=== PATIENT | male | born 1950 | race Caucasian/White ===

== ENCOUNTER → 2018-05-03 08:32 | Outpatient (CLI) | payer SELFPAY | PROVIDERS: Visit Provider Nurse Practitioner Family | DX: E11.9 Type 2 diabetes mellitus without complications (principal) ==

== ENCOUNTER 2023-07-12 11:27 | Inpatient (IN) | payer MEDICARE, SELFPAY ==
[2023-07-12] VITALS (21 sets, daily range): BP systolic 96–141; BP diastolic 53–96; PULSE 88–111; RESP 9–20; TEMP 36.5–36.8; O2SAT 95–100; BMI 22.4; BMI 22.8
--- NOTE | 2023-07-12 11:34 | ECG_ITS ---
APPROVED REPORT Exam: Resting ECG HR:109 bpm ECG Measurements Heart Rate 109 AXES MN 149 P 72 QRSd 98 QRS 80 QT 330 T 60 QTc 394 Conclusion SINUS TACHYCARDIA WITH OCCASIONAL ECTOPIC PREMATURE COMPLEXES POSSIBLE LEFT ATRIAL ENLARGEMENT [-0.1mV P-WAVE IN V1/V2] ANTEROLATERAL MYOCARDIAL INFARCTION , PROBABLY RECENT [40+ ms Q WAVE IN I/aVL/V3-V6] ACUTE UT INTERPRETATION BASED ON A DEFAULT AGE OF 40 YEARS UNCONFIRMED REPORT Electronically signed by : Loki Murray MD 07/12/2023 17:09:15
--- NOTE | 2023-07-12 11:40 | CA_ITS ---
APPROVED REPORT EXAM: Comprehensive 2D, Doppler, and color-flow Echocardiogram Farm Adviser: DOROTEO Gregory, RVS Ht: 5 ft 10 in Wt: 170lbs BSA: 1.95 BP: 135/86 mmHg Indications: weakness, STEMI Echo Enhancing Agent Comments: Patient scanned bedside, supine with limited window due to defibrillator pad placement 2D Dimensions IVSd 0.98 cm LVEF (Visual) 32.00 % PWd 1.07 cm LA Volume 70.00 mL LVDd 5.92 cm LA Volume Index 35.00 mL/m2 (M/F) 16-34 LVDs 4.70 cm Aortic Root 3.50 cm Left Atrium 3.88 cm LVOT 2.15 cm (M/F) 1.5-2.5 M-Mode Dimensions LA Diam 5.04 cm (1.9-4.0) Ao Diam 3.41 cm (2.0-3.7) EPSs 1.65 cm TAPSE 1.79 (<1.7) LV Diastology E Decel Time 152.00 (160-240 msec) E/A Ratio 0.91 MED E' 6.00 (< 7 cm/sec) MED A' 15.80 cm/s E'/MED E' Ratio 15.40 (>14) LAT E' 4.50 (<10 cm/sec) LAT A' 8.60 cm/s E/LAT E' Ratio 20.53 (>14) Aortic Valve LVOT Max 85.00 (70-110 cm/s) LVOT VTI 14.56 cm AoV Peak Rasta. 94.00 (50-130 cm/s) AO Peak GR. 3.60 mmHg AO Mean GR. 1.80 (<5 mmHg) AO VTI 15.28 (18-25 cm) LUNA (VTI) 3.46 (2.5-4.5 cm2) Mitral Valve MV A Velocity 102.00 (40-130 cm/s) E/A Ratio 0.91 MV Decel. Time 152.00 (160-240 ms) Tricuspid Valve TR P. Velocity 302.00 cm/s RAP Estimate 10.00 mmHg RVSP 46.50 mmHg Left Ventricle Left ventricle is moderately dilated. Left ventricular systolic function is severely decreased. There is normal left ventricular wall thickness. There is a severe reduction in global LV systolic function. There is akinesis of the anterior and anteroseptal LV daniel. Diastolic function is indeterminate. LVEF is 20%. Right Ventricle The right ventricle is normal size. The right ventricular systolic function is normal. Atria The left atrium size is normal. The right atrium size is normal. There is no Doppler evidence of interatrial shunt. Aortic Valve The aortic valve opens well. There is no aortic valvular stenosis. Trace aortic regurgitation. Mitral Valve The mitral valve is normal in structure. No evidence of mitral valve stenosis. Trace mitral regurgitation. Tricuspid Valve The tricuspid valve leaflets are thin and pliable. Moderate tricuspid regurgitation. RVSP is 35-40 mmHg. Pulmonic Valve The pulmonary valve is normal in structure. Trace pulmonic regurgitation. Great Vessels The aortic root is normal in size. The ascending aorta is normal in size. IVC is normal in size and collapses >50% with inspiration. Pericardium There is no pericardial effusion. Other Information Study Quality: Fair Conclusion Severe reduction in global LV systolic function (LVEF 20%) Severe reduction in global LV systolic function. There is akinesis of the anterior and anteroseptal LV daniel. Moderate TR. Elevated RVSP 35-40 mmHg. Electronically signed by : Vilma Baxter MD 07/13/2023 15:13:47
--- NOTE | 2023-07-12 11:43 | CT_ITS ---
FINAL REPORT TECHNIQUE: multiple axial CT images were performed from the foramen magnum to the vertex without enhancement. CLINICAL HISTORY: AMS, weakness, fall FINDINGS: There is mild atrophy and proportional ventriculomegaly. There is patchy decreased attenuation in the deep white matter bilaterally. There is encephalomalacia in the left occipital lobe consistent with sequela of prior infarct. There is no evidence of hemorrhage, mass effect, or edema. No extra-axial fluid is seen. The sinuses are normal. IMPRESSION: Atrophy and chronic changes without acute process. Reviewed, Interpreted and Dictated by Sulaiman Vega MD Transcribed by Juliann Diaz Authenticated and [facility]
--- NOTE | 2023-07-12 11:44 | XR_ITS ---
FINAL REPORT CLINICAL HISTORY: weakness, soa FINDINGS: SINGLE-VIEW CHEST The heart size is normal. The mediastinum is normal. The lungs are underinflated with bibasilar atelectasis. There are small effusions.. There is no pneumothorax. IMPRESSION: Bibasilar atelectasis and small effusions. Reviewed, Interpreted and Dictated by Sulaiman Vega MD Transcribed by Juliann Diaz Authenticated and [facility]
[2023-07-12 11:56] LABS: Basophils % 0.1 % (0.1-2.0); Eosinophils # 0.1 K/mm3 (0.0-0.4); Eosinophils % 0.5 % (0.1-12.0); Hematocrit 49.3 % (42.0-52.0); Hemoglobin 15.8 g/dL (14.1-18.0); Lymphocytes # 0.5 K/mm3 (0.7-4.5); Lymphocytes % 2.8 % (10-50); Mean Corpuscular HGB Conc 32.1 g/dL (31.8-35.4); Mean Corpuscular Hemoglobin 31.6 pg (27.0-31.2); Mean Corpuscular Volume 98.3 fl (80-94); Mean Platelet Volume 9.9 fl (7.4-10.4); Monocytes # 0.9 K/mm3 (0.1-1.0); Monocytes % 4.7 % (1.7-9.3); Neutrophils # 16.7 K/mm3 (1.8-7.8); Neutrophils % 91.9 % (37.0-80.0); Platelet Count 340 K/mm3 (142-424); Red Blood Count 5.01 M/mm3 (4.60-6.20); Red Cell Distribution Width 14.4 % (11.5-17.5); White Blood Count 18.2 K/mm3 (4.8-10.8)
[2023-07-12 11:58] LABS: MANUAL DIFFERENTIAL MANUAL DIFFERENTIAL (MANUAL DIFF)
[2023-07-12 12:00] LABS: Coronavirus 19, PCR Not Detected (NotDetected); Influenza A, PCR Not Detected (NotDetected); Influenza B, PCR Not Detected (NotDetected)
[2023-07-12 12:03] LABS: Activated Partial Thrombo Time 33.8 seconds (22.8-30.6); Alanine Aminotransferase 15 U/L (12-78); Albumin Level 3.1 g/dl (3.5-5.0); Albumin/Globulin Ratio 0.9 (1.1-1.8); Alkaline Phosphatase 98 U/L (38-126); Anion Gap 26.7 mEq/L (5-15); Aspartate Amino Transferase 26 U/L (17-59); Bilirubin,Total 0.9 mg/dl (0.2-1.3); Blood Urea Nitrogen 14 mg/dl (9-20); Calcium 8.6 mg/dl (8.4-10.2); Carbon Dioxide 12 mmol/L (22.0-30.0); Chloride 101 mmol/L (98-107); Estimated Glomerular Filt Rate 133 ml/min (>60); GFR (African American) 161 ML/MIN (>60); Globulin 3.6 g/dL (1.3-3.2); Glucose 347 mg/dl (74-100); Lipase 22 U/L (23-300); Potassium 3.7 mmoL/L (3.5-5.1); Sodium 136 mmol/L (136-145); Total Protein,Serum 6.7 g/dl (6.3-8.2)
[2023-07-12 12:04] LABS: Ethyl Alcohol < 10 mg/dl (0-10)
[2023-07-12 12:05] LABS: INR 1.22 (0.9-1.1)
[2023-07-12 12:06] LABS: Anisocytosis 1+; Lymphocytes % 2 % (10-50); Monocytes % 4 % (2-9); Neutrophils % 85 % (42-76); Ovalocytes 1+; Platelet Estimate Normal; Poikilocytosis 1+; Total Cells Counted 100
[2023-07-12 12:07] LABS: Burr Cells 1+; Hypochromasia 1+
[2023-07-12 12:16] LABS: VBG Base Excess -13.6 mmol/L (-2.4-2.3); VBG HCO3 13.4 mmol/L (23-30); VBG Oxygen Saturation 90.1 % (50-70); VBG PCO2 30.2 mmol/L (35-51); VBG PH 7.26 mmol/L (7.31-7.41); VBG PO2 57.6 mmol/L (28-40); VBG Total CO2 14.3 mmol/L (23-27)
[2023-07-12 12:16] LABS: Troponin I 0.04 ng/ml (0.00-0.034)
[2023-07-12 12:21] LABS: T4 (Thyroxine) 3.9 ug/dl (5.53-11.0)
--- NOTE | 2023-07-12 12:21 | HMH.EDGENADL ---
Discharge Plan Disposition Patient Disposition: Admitted Prescriptions Prescriptions: No Action glipizide 10 mg tablet 10 mg PO BID metformin 500 mg tablet extended release 24 hr 500 mg PO BID lisinopril 20 mg tablet 20 mg PO BID Referrals Follow up/Referrals: Provider,Referral, [Primary Care Provider] - See instructions Clinical Impressions Clinical Impression: Generalized weakness, Acute confusion, Non-ST elevation ID (NSTEMI) Discharge ED Provider: Rakesh Kidd General Adult HPI General Chief complaint: Weakness Stated complaint: AMS Time Seen by Provider: 07/12/23 11:30 Mode of Arrival: EMS Source of Information: Patient Limitations: No Limitations Description of Symptoms (Recalled from ER Triage Doc. by RN): c/o rolling out of bed this am, per ems pt has been weak and confused per sister. ems states that pt has been living in his truck, went to his sistsers about a week ago, a director of social services has been contacted for further assistance on [facility]. PT is alert, oriented x2. Denies any injuries from rolling out of bed. Swelling noted bilateral legs. History of Present Illness HPI narrative: Chronically ill male presenting after unwitnessed fall. Patient states he has history of diabetes, hypertension, hyperlipidemia. He has been feeling generally weak today, 07/12. States that he rolled out of bed and felt that he was unable to stand up secondary to generalized weakness. Denies unilateral weakness, chest pain, shortness of breath, nausea or vomiting, fevers or chills, diarrhea, abdominal pain, or any other concerns. Patient alert, oriented to person, situation, and place, but not time. Related Data Home Medications Medication Instructions Recorded Confirmed glipizide 10 mg tablet 10 mg PO BID 05/03/18 lisinopril 20 mg tablet 20 mg PO BID 05/03/18 metformin 500 mg tablet,extended 500 mg PO BID 05/03/18 release 24 hr Allergies Allergy/AdvReac Type Severity Reaction Status Date / Time No Known Allergies Allergy Verified 05/03/18 08:26 [facility] Disclaimer: The information contained in this section may have been updated after the patient was seen, as this information can be updated by other users. Social History Smoking Status: Never smoker alcohol intake: former substance use type: denies use current occupational status: unemployed Travel in the last 8 weeks: None housing: other ROS Obtained: Yes All systems reviewed & no additional complaints except as documented Physical Exam General General appearance: alert, in no apparent distress and anxious Head Head exam: atraumatic and normocephalic Eye Eye exam: Present normal appearance, PERRL and EOMI ENT ENT exam: Present mucous membranes moist Neck Neck exam: Present normal inspection, full ROM and trachea midline Respiratory Respiratory exam: Present normal lung sounds bilaterally; Absent respiratory distress, wheezes, stridor, accessory muscle use or prolonged expiratory phase Cardiovascular Cardiovascular exam: Present regular rate and normal rhythm Abdominal Exam Abdominal exam: Present soft; Absent distention, tenderness, guarding, rebound, rigidity or normal bowel sounds Extremities Exam Extremities exam: Present edema Neurological Exam Neurological exam: Present alert, oriented X3 (Oriented person, place, situation, but not time) and CN II-XII intact; Absent motor sensory deficit Skin Skin exam: Present warm and dry; Absent diaphoresis or erythema Medical Decision Making Medical Records Medical records reviewed: Yes I reviewed the patient's medical records. Benjamin Inquiry Pt receiving controlled substance: No Benjamin was queried for this patient: No Vital Signs: 07/12/23 11:27 07/12/23 13:00 Temperature 97.8 F Temperature Source Oral Pulse Rate 103 H Pulse Rate [Left Radial] 111 H Respiratory Rate 18 18 Blood Pressure [Right Arm] 135/86 Blood Pressu
--- NOTE | 2023-07-12 12:25 | PC.NURSE ---
pt to radiology
--- NOTE | 2023-07-12 12:27 | PC.NURSE ---
pt given urinal for urine collection
[2023-07-12 12:34] LABS: Thyroid Stimulating Hormone 0.82 uIU/mL (0.465-4.68)
--- NOTE | 2023-07-12 12:49 | P.CONPHA_ITS ---
Pharmacy Consult Date: 07/12/23 Time: 12:49 Referring provider: DR. NAZARIO Reason for Consult:: VANCOMYCIN DOSING Allergies Allergy/AdvReac Type Severity Reaction Status Date / Time No Known Allergies Allergy Verified 05/03/18 08:26 Home Medications Medication Instructions Recorded Confirmed Type glipizide 10 mg tablet 10 mg PO BID 05/03/18 History lisinopril 20 mg tablet 20 mg PO BID 05/03/18 History metformin 500 mg tablet,extended 500 mg PO BID 05/03/18 History release 24 hr New Prescriptions to Start Prescriptions: Height: 1.83 m Weight: 74.843 kg Laboratory Results:: Laboratory Results - last 24 hr 07/12/23 11:30: WBC 18.2 H, RBC 5.01, Hgb 15.8, Hct 49.3, MCV 98.3 H, MCH 31.6 H , MCHC 32.1, RDW 14.4, Plt Count 340, MPV 9.9, Neut % (Auto) 91.9 H, Lymph % (Auto) 2.8 L, [place] % (Auto) 4.7, Eos % (Auto) 0.5, Baso % (Auto) 0.1, Neut # (Auto) 16.7 H, Lymph # (Auto) 0.5 L, [place] # (Auto) 0.9, Eos # (Auto) 0.1, Baso # (Auto) 0.0, Total Counted 100, Neutrophils % (Manual) 85 H, Band Neutrophils % 9.0 H, Lymphocytes % (Manual) 2 L, Monocytes % (Manual) 4, Platelet Estimate Normal, Hypochromasia 1+, Poikilocytosis 1+, Anisocytosis 1+, Ovalocytes 1+, Gianluca Cells 1+, PT 13.0 H, INR 1.22 H, APTT 33.8 H, Sodium 136, Potassium 3.7, Chloride 101, Carbon Dioxide 12 L, Anion Gap 26.7 H, BUN 14, Creatinine 0.60 L, Estimated GFR 133, Est GFR ( Amer) 161, Glucose 347 H, Calcium 8.6, Total Bilirubin 0.9, AST 26, ALT 15, Alkaline Phosphatase 98, Troponin I 0.04 H, Total Protein 6.7, Albumin 3.1 L, Globulin 3.6 H, Albumin/Globulin Ratio 0.9 L, Lipase 22 L, TSH 0.82, Thyroxine (T4) 3.9 L, Plasma/Serum Alcohol < 10 07/12/23 11:39: SARS-CoV-2 (PCR) Not detected, Influenza A Untype (PCR) Not detected, Influenza Type B (PCR) Not detected 07/12/23 11:45: VBG pH 7.26 L, VBG pCO2 30.2 L, VBG pO2 57.6 H, VBG HCO3 13.4 L, VBG Total CO2 14.3 L, VBG O2 Saturation 90.1 H, VBG Base Excess -13.6 L Assessment and Plan Assessment and plan all Dx Assessment and Plan for all problems:: Pharmacokinetic dosing service Objective: Patient: Floor: Age: 73 yo Serum creatinine: 0.60 mg/dL Height: 72.0 Inches Weight (kg): 74.8 Assessment: IBW (kg): 77.60 Dosing wt(kg): 74.8 Estimated Creatinine clearance (ml/min): 119.5 CRCL method: Cockcroft and Gault using ibw(default). Drug selected: Vancomycin Loading dose (mg): Vd (liters): 56.1 (factor used: 0.75 L/kg) Isidro (hr-1): 0.104 Half life (hrs): 6.66 CLvanco=?? 5.834 L/hr Recommended dose: 1500 mg Interval: 12 hrs Infusion time (hrs): 2.0 Predicted peak (mcg/mL): 33.9 Predicted trough (mcg/mL): 11.98 Total body weight is being used for vancomycin dosing. Recommendations: Give Vancomycin 1500 mg q 12 hrs with an expected Cpeak of 33.9 mcg/ml and an expected Ctrough of 11.98 mcg/ml AUC 0-24 /GENE Data: GENE 0.5 mcg/mL:?? AUC/GENE:? 1028.5 GENE 1.0 mcg/mL:?? AUC/GENE:? 514.2 --------- GENE 1.5 mcg/mL:?? AUC/GENE:? 342.8 GENE 2.0 mcg/mL:?? AUC/GENE:? 257.1 Thank you for the consult, will continue to follow. -CRESCENCIO PATINO, MYROND
--- NOTE | 2023-07-12 13:00 | PC.NURSE ---
Assumed patient care at this time. Blue bracelet and fall bracelet placed on patient. Call light within reach of patient
[2023-07-12 13:20] LABS: Acetone, Serum (Rapid) Moderate (None Detect)
[2023-07-12 13:21] LABS: Lactic Acid 1.6 mmol/L (0.7-2.1)
[2023-07-12 13:45] LABS: NT Pro Brain Natriuretic Pep. 2810 pg/mL (0-125)
--- NOTE | 2023-07-12 13:57 | PC.NURSE ---
Went in to room to assess patient and see if patient was able to leave us a UA. Patient said he feels like he is not able to urinate. Bladder scanned patient: >828mL in bladder. MD notified; V/O to insert catheter for acute urinary retention.
[2023-07-12 14:17] LABS: Microscopic, Urine URINE MICROSCOPIC (MICROSCOPIC)
[2023-07-12 14:23] LABS: Appearance,Urine CLEAR (Clear); Blood, Urine TRACE-I (Negative); Color,Urine YELLOW (Yellow); Glucose,Urine (UA) 2+ (Negative); Ketones,Urine 3+ (Negative); Leukocyte Esterase,Urine Negative (Negative); Nitrate,Urine Negative (Negative); PH,Urine 5.5 (5.0-8.5); Protein,Urine TRACE (Negative); Specific Gravity, Urine >= 1.030 (1.005-1.030); Urobilinogen,Urine 0.2 EU/dl (0.2)
--- NOTE | 2023-07-12 14:30 | PC.NURSE ---
Rounded on patient; call light within reach of patient.
[2023-07-12 14:39] LABS: Bacteria,Urine Trace /lpf; RBC,Urine Occasional #/hpf (0-3); Squamous Epithelial Cell,Urine Occasional #/hpf (0-5)
[2023-07-12 14:41] LABS: Bilirubin,Urine 1+ (Negative)
[2023-07-12 15:01] LABS: Creatine Kinase 64 U/L (55-170)
[2023-07-12 15:16] LABS: Troponin I 0.25 ng/ml (0.00-0.034)
--- NOTE | 2023-07-12 15:17 | PC.NURSE ---
trop 0.25, aware
--- NOTE | 2023-07-12 15:20 | ECG_ITS ---
APPROVED REPORT Exam: Resting ECG HR:97 bpm ECG Measurements Heart Rate 97 AXES WV 145 P 26 QRSd 111 QRS -12 QT 358 T 145 QTc 412 Conclusion SINUS RHYTHM POSSIBLE LEFT ATRIAL ENLARGEMENT [-0.1mV P-WAVE IN V1/V2] ANTEROSEPTAL MYOCARDIAL INFARCTION , OF INDETERMINATE AGE [40+ ms Q WAVE IN V1-V4] ABNORMAL ECG UNCONFIRMED REPORT Electronically signed by : Loki Murray MD 07/12/2023 17:09:09
--- NOTE | 2023-07-12 15:38 | PC.NURSE ---
arrived by stretcher from ED
--- NOTE | 2023-07-12 16:01 | PC.WOUNDNOTE ---
Right lateral lower extremity
[2023-07-12 16:27] LABS: Chloride 104 mmol/L (98-107); Potassium 3.6 mmoL/L (3.5-5.1); Sodium 137 mmol/L (136-145)
[2023-07-12 16:30] LABS: Anion Gap 24.6 mEq/L (5-15); Blood Urea Nitrogen 14 mg/dl (9-20); Carbon Dioxide 12 mmol/L (22.0-30.0); Creatinine Clearance Estimated 72 mL/min (50-200); Estimated Glomerular Filt Rate 133 ml/min (>60); GFR (African American) 161 ML/MIN (>60)
[2023-07-12 16:31] LABS: Calcium 8.3 mg/dl (8.4-10.2); Glucose 322 mg/dl (74-100); Glucose,Random 322 mg/dL (74-100)
[2023-07-12 16:56] LABS: POC Glucose,Bedside 298 (70-110)
[2023-07-12 17:39] LABS: POC Glucose,Bedside 266 (70-110)
--- NOTE | 2023-07-12 18:29 | PC.NURSE ---
1825 insulin drip decreased to 5 units/hr per Dr Escalera verbal order at bedside
[2023-07-12 18:34] LABS: POC Glucose,Bedside 222 (70-110)
--- NOTE | 2023-07-12 18:44 | EXP.HP ---
History of Present Illness *Admission Date: 07/12/23 *Reason for visit:: generalized weakness *History of present illness: Patient is a 73-year-old male with past medical history of diabetes mellitus who has not been taking any of his medications presented to hospital due to generalized weakness. Patient was also noticed to have confusion. Patient is not able to provide history, he is asking for food. Patient is currently not able to provide much history due to confusion. Otherwise he was noticed to have dry mucous membranes. Patient is currently living with his sister. [facility] Disclaimer: The information contained in this section may have been updated after the patient was seen, as this information can be updated by other users. Medical History (Updated 07/12/23 @ 18:47 by Brad Escalera MD) Diabetes Stroke Family History (Updated 07/12/23 @ 18:15 by Payal Dickinson RN) Other CHF (congestive heart failure) COPD (chronic obstructive pulmonary disease) Cancer Coronary artery disease Dementia Hypertension Lung cancer Social History (Updated 07/12/23 @ 18:16 by Payal Dickinson RN) Smoking Status: Never smoker alcohol intake: former substance use type: denies use current occupational status: unemployed Travel in the last 8 weeks: None household members: family housing: other marital status: single number of children: 0 number of grandchildren: 0 Review of Systems Review of Systems Review of systems:: pertinent systems reviewed and negative unless documented below Meds Home Medications and Allergies Home Medications Medication Instructions Recorded Confirmed Type glipizide 10 mg tablet 10 mg PO BID 05/03/18 History lisinopril 20 mg tablet 20 mg PO BID 05/03/18 History metformin 500 mg tablet,extended 500 mg PO BID 05/03/18 History release 24 hr New Prescriptions to Start Prescriptions: Allergies Allergy/AdvReac Type Severity Reaction Status Date / Time No Known Allergies Allergy Verified 05/03/18 08:26 Exam Data for Last 24 hours Vital signs and Labs for Last 24 Hours: Temp Pulse Resp BP Pulse Ox O2 Del Method 97.8 F 94 H 18 126/75 95 Room Air 07/12/23 15:39 07/12/23 18:00 07/12/23 18:00 07/12/23 18:00 07/12/23 18:00 07/12/23 18:00 Laboratory Results - last 24 hr 07/12/23 11:30: WBC 18.2 H, RBC 5.01, Hgb 15.8, Hct 49.3, MCV 98.3 H, MCH 31.6 H, MCHC 32.1, RDW 14.4, Plt Count 340, MPV 9.9, Neut % (Auto) 91.9 H, Lymph % (Auto) 2.8 L, [place] % (Auto) 4.7, Eos % (Auto) 0.5, Baso % (Auto) 0.1, Neut # (Auto) 16.7 H, Lymph # (Auto) 0.5 L, [place] # (Auto) 0.9, Eos # (Auto) 0.1, Baso # (Auto) 0.0, Total Counted 100, Neutrophils % (Manual) 85 H, Band Neutrophils % 9.0 H, Lymphocytes % (Manual) 2 L, Monocytes % (Manual) 4, Platelet Estimate Normal, Hypochromasia 1+, Poikilocytosis 1+, Anisocytosis 1+, Ovalocytes 1+, [place] Cells 1+, PT 13.0 H, INR 1.22 H, APTT 33.8 H, Sodium 136, Potassium 3.7, Chloride 101, Carbon Dioxide 12 L, Anion Gap 26.7 H, BUN 14, Creatinine 0.60 L, Estimated GFR 133, Est GFR ( Amer) 161, Glucose 347 H, Calcium 8.6, Total Bilirubin 0.9, AST 26, ALT 15, Alkaline Phosphatase 98, Troponin I 0.04 H, NT-Pro-B Natriuret Pep 2810 H, Total Protein 6.7, Albumin 3.1 L, Globulin 3.6 H, Albumin/Globulin Ratio 0.9 L, Lipase 22 L, TSH 0.82, Thyroxine (T4) 3.9 L, Plasma/Serum Alcohol < 10, Acetone Level Moderate 07/12/23 11:39: SARS-CoV-2 (PCR) Not detected, Influenza A Untype (PCR) Not detected, Influenza Type B (PCR) Not detected 07/12/23 11:45: VBG pH 7.26 L, VBG pCO2 30.2 L, VBG pO2 57.6 H, VBG HCO3 13.4 L, VBG Total CO2 14.3 L, VBG O2 Saturation 90.1 H, VBG Base Excess -13.6 L 07/12/23 12:49: Lactate 1.6 07/12/23 14:03: Urine Color Yellow, Urine Appearance Clear, Urine pH 5.5, Ur Specific [place] >= 1.030, Urine Protein Trace, Urine Glucose (UA) 2+, Urine Ketones 3+, Urine Blood Trace-i, Urine Nitrate Negative, Urine Bilirubin 1+ A, U
[2023-07-12 19:13] LABS: Troponin I 0.57 ng/ml (0.00-0.034)
[2023-07-12 19:55] LABS: Anion Gap 24.2 mEq/L (5-15); Blood Urea Nitrogen 13 mg/dl (9-20); Chloride 106 mmol/L (98-107); Creatinine Clearance Estimated 73 mL/min (50-200); Estimated Glomerular Filt Rate 164 ml/min (>60); GFR (African American) 198 ML/MIN (>60); Glucose 225 mg/dl (74-100); Glucose,Random 225 mg/dL (74-100); Potassium 3.2 mmoL/L (3.5-5.1); Sodium 136 mmol/L (136-145)
[2023-07-12 19:58] LABS: Carbon Dioxide 9 mmol/L (22.0-30.0)
[2023-07-12 20:06] LABS: POC Glucose,Bedside 231 (70-110)
[2023-07-12 20:08] LABS: POC Glucose,Bedside 173 (70-110)
[2023-07-12 20:47] LABS: POC Glucose,Bedside 279 (70-110)
[2023-07-12 21:23] LABS: POC Glucose,Bedside 167 (70-110)
[2023-07-12 22:12] LABS: POC Glucose,Bedside 172 (70-110)
[2023-07-12 23:10] LABS: POC Glucose,Bedside 117 (70-110)
[2023-07-12 23:50] LABS: Anion Gap 16.1 mEq/L (5-15); Blood Urea Nitrogen 12 mg/dl (9-20); Calcium 8.2 mg/dl (8.4-10.2); Carbon Dioxide 19 mmol/L (22.0-30.0); Chloride 106 mmol/L (98-107); Creatinine Clearance Estimated 73 mL/min (50-200); Estimated Glomerular Filt Rate 164 ml/min (>60); GFR (African American) 198 ML/MIN (>60); Glucose 103 mg/dl (74-100); Glucose,Random 103 mg/dL (74-100); Potassium 3.1 mmoL/L (3.5-5.1); Sodium 138 mmol/L (136-145)
[2023-07-13] VITALS (16 sets, daily range): BP systolic 93–157; BP diastolic 53–99; PULSE 90–146; RESP 14–24; TEMP 36.6–37.1; O2SAT 90–95; BMI 23.0
[2023-07-13 00:23] LABS: POC Glucose,Bedside 75 (70-110)
[2023-07-13 01:24] LABS: POC Glucose,Bedside 102 (70-110)
[2023-07-13 02:13] LABS: POC Glucose,Bedside 80 (70-110)
[2023-07-13 03:27] LABS: Chloride 108 mmol/L (98-107)
[2023-07-13 03:28] LABS: Potassium 3.5 mmoL/L (3.5-5.1); Sodium 137 mmol/L (136-145)
[2023-07-13 03:30] LABS: Blood Urea Nitrogen 12 mg/dl (9-20); Creatinine Clearance Estimated 73 mL/min (50-200); Estimated Glomerular Filt Rate 164 ml/min (>60); GFR (African American) 198 ML/MIN (>60)
[2023-07-13 03:31] LABS: Anion Gap 9.5 mEq/L (5-15); Calcium 7.9 mg/dl (8.4-10.2); Carbon Dioxide 23 mmol/L (22.0-30.0); Glucose 92 mg/dl (74-100)
--- NOTE | 2023-07-13 04:52 | PC.NURSE ---
Insulin drip titrations: 2029 titrated to 7.5u/hr, BGL 279 2100 titrated to 4u/hr, BGL 167 2200 no change, BGL 172 2300 no change, BGL 117 0000 titrated to 2u/hr, BGL 75 0100 titrated to 1u/hr, BGL 102 0200 no change, BGL 80 0300 insulin drip stopped, 10uLantus given, BGL on BMP 92
[2023-07-13 05:59] LABS: POC Glucose,Bedside 214 (70-110)
[2023-07-13 06:53] LABS: Basophils % 0.2 % (0.1-2.0); Eosinophils # 0.1 K/mm3 (0.0-0.4); Eosinophils % 0.7 % (0.1-12.0); Hematocrit 43.7 % (42.0-52.0); Hemoglobin 14.7 g/dL (14.1-18.0); Lymphocytes # 0.6 K/mm3 (0.7-4.5); Lymphocytes % 3.5 % (10-50); Mean Corpuscular HGB Conc 33.7 g/dL (31.8-35.4); Mean Corpuscular Hemoglobin 32.3 pg (27.0-31.2); Mean Corpuscular Volume 95.9 fl (80-94); Mean Platelet Volume 9.2 fl (7.4-10.4); Monocytes # 0.5 K/mm3 (0.1-1.0); Monocytes % 3.4 % (1.7-9.3); Neutrophils # 14.3 K/mm3 (1.8-7.8); Neutrophils % 92.2 % (37.0-80.0); Platelet Count 352 K/mm3 (142-424); Red Blood Count 4.56 M/mm3 (4.60-6.20); Red Cell Distribution Width 14.7 % (11.5-17.5); White Blood Count 15.5 K/mm3 (4.8-10.8)
[2023-07-13 06:55] LABS: MANUAL DIFFERENTIAL MANUAL DIFFERENTIAL (MANUAL DIFF)
[2023-07-13 07:01] LABS: Anion Gap 14.8 mEq/L (5-15); Blood Urea Nitrogen 13 mg/dl (9-20); Carbon Dioxide 18 mmol/L (22.0-30.0); Chloride 107 mmol/L (98-107); Creatinine Clearance Estimated 74 mL/min (50-200); Estimated Glomerular Filt Rate 133 ml/min (>60); GFR (African American) 161 ML/MIN (>60); Glucose 250 mg/dl (74-100); Potassium 3.8 mmoL/L (3.5-5.1); Sodium 136 mmol/L (136-145)
[2023-07-13 07:05] LABS: Lymphocytes % 3 % (10-50); Monocytes % 5 % (2-9); Neutrophils % 90 % (42-76); Platelet Estimate Normal; Total Cells Counted 100
[2023-07-13 07:06] LABS: Macrocytosis 1+
--- NOTE | 2023-07-13 08:41 | HMH.PHAINT1 ---
Pharmacy Intervention Comments: Med reconciliation completed by patient interview. Mr Love states that he has no home meds. He was no longer taking lisinopril, glipizide, or metformin at time of admission.
--- NOTE | 2023-07-13 09:38 | HMH.OTEV ---
OT Inpatient Evaluation Rehab OT IP Evaluation Start: 07/13/23 08:06 Freq: ONCE Status: Active Protocol: Document 07/13/23 09:31 KRISTA (Rec: 07/13/23 09:38 [id number] Rehab OT IP Assessment Subjective History Pt oriented x 1 on arrival. Pt could not tell me his birthday or place. Pt unable to provide prior level of functioning. Information provided by nursing. Apparently prior to being in the hospital he was living with his sister for a short period of time. She had been providing care to him. Sister also told nursing he was able to transfer himself short distances such as too and from bathroom. Prior to living with his sister he was living in his truck. Pt has continued significant confusion. Pt has a past medical history of: CHF (congestive heart failure) COPD (chronic obstructive pulmonary disease) Cancer Coronary artery disease Dementia Hypertension Lung cancer Subjective I'm at home. Objective Patient Orientation Person Right Upper Extremity Gross ROM Min Limitation <25% Left Upper Extremity Gross ROM Min Limitation <25% Shoulder ROM Limitations Muscle Weakness Elbow ROM Limitations Muscle Weakness Wrist Limitations of Range of Motion Muscle Weakness Bed Mobility bed mobility-scooting,bed mobility - supine/sit Assist Level Maximum x 1 (75% assist) Rehab OT IP prob,goals,plan Problems Date of Evaluation: 07/13/23 OT IP Problems Bed Mobility,Transfers,Balance ,Self care,Safety Rehab Potential Rehab Potential Good Equipment Needs Assistive Devices Rolling / Wheeled Walker Plan OT intervention Plan Bed Mobility,Transfers,Balance ,Self care,Safety,Therapeutic Exercise OT Plan Frequency BID Duration LOS
--- NOTE | 2023-07-13 10:03 | CA_ITS ---
FINAL REPORT TECHNIQUE: Bilateral lower extremity venous duplex was performed with augmentation and compression. CLINICAL HISTORY: EDEMA BLE'S COMPARISON: None FINDINGS: Proper flow is seen throughout the deep venous systems bilaterally. There is no evidence of deep venous thrombosis. IMPRESSION: No evidence of deep venous thrombosis. Reviewed, Interpreted and Dictated by Sulaiman Vega MD Transcribed by Mercy Payne Authenticated and . [facility]
--- NOTE | 2023-07-13 10:47 | HMH.PTEV ---
Physical Therapy Evaluation Rehab PT IP Evaluation Start: 07/13/23 08:06 Freq: ONCE Status: Active Protocol: Document 07/13/23 10:44 NELLY (Rec: 07/13/23 10:47 PHOJOANA [id number]) Subjective/History History History 73 yowm adm to [facility] with NSTEMI , AMS, weakness. Pt oriented x 1 on arrival. Pt could not tell me his birthday or place. Pt unable to provide prior level of functioning. Information provided by nursing. Apparently prior to being in the hospital he was living with his sister for a short period of time. She had been providing care to him. Sister also told nursing he was able to transfer himself short distances such as too and from bathroom. Prior to living with his sister he was living in his truck. Pt has continued significant confusion. Subjective Subjective Currently alertness waxes and wanes. New diagnosis of cancer in past 12 No months? Rehab PT IP Eval Objective Appearance Patient Behavior Confused Patient Orientation Person Difficulty following instructions moderate Speech Pattern Clear Ambulation Patient Able to Ambulate No Balance Ability to Arise Unable Transfers Bed Transfer Ability Maximum x 1 (75% assist) Rehab PT IP prob,goals,plan Problems Date of Evaluation: 07/13/23 PT IP Problems Bed Mobility,Transfers,Gait Rehab Potential Rehab Potential Fair Plan PT Intervention Plan Bed Mobility,Transfers,Gait, Therapeutic Exercise PT Plan Frequency Daily Discharge Goals Bed Transfer Ability Moderate x 2 (50% assist) Sit to Stand Chair Transfer Ability Moderate x 2 (50% assist) Discharge Plan PT Discharge Plan Pt is surrently most appropriate for rehab placement once medically stable for d/c. Skilled thereapy necessary to prevent debility, injury, wounds, falls. Eval Complexity Eval Charge Codes 02549 - High Complexity
--- NOTE | 2023-07-13 10:47 | HMH.PTWOUND ---
Rehab Inpt Wound Evaluation Rehab IP Wound Evaluation Start: 07/12/23 17:49 Freq: ONCE Status: Complete Protocol: Document 07/13/23 10:38 NELLY (Rec: 07/13/23 10:42 NELLY [id number]) Rehab PT Wound Assessment Subjective Subjective 73 yowm adm to [facility] with past medical history of diabetes mellitus who has not been taking any of his medications presented to hospital due to generalized weakness. He also presents with Wound to his R posterior calf. Wound Right Posterior Calf Wound Type Stasis Ulcer Is This a Chronic Wound Yes Wound Length (cm) 10.0 Wound Width (cm) 5.5 Wound Depth (cm) 0.1 Wound Bed Appearance [place],Yellow Percentage Granulated (%) 75 Percentage of Slough (%) 25 Wound Margins Description Indistinct Surrounding Tissue Appearance [place] Edema Degree 3+ Query Text:1+ Trace, Barely Detectable, Rebound 15-30 seconds 2+ Moderate, Slight Indentation, Rebound 10-20 seconds 3+ Deep, Deeper Indentation, Rebound > 30 seconds 4+ Very Deep, Rebound > 60 seconds Wound Drainage Description Yellow Drainage Amount Small Wound Topical Solution/Irrigant Saline Irrigant Primary Dressing Composite Comment optifoam gentle border Wound Debridement Method Gauze,Mechanical Wound Debridement Amount of Tissue Minimal Removed Dressing Change Patient Tolerance Tolerated Well Plan/Recommendation Comment [facility] staff to continue dressing changes as above once every 1 -2 days as needed. Eval Complexity Eval Charge Codes 13864 - High Complexity PHYSICIAN CERTIFICATION: I certify the specified therapy services for Andrea Love are required, authorized, and reviewed every 30 days.
--- NOTE | 2023-07-13 11:07 | PC.NURSE ---
Phys therapy at bedside for wound eval. wound cleansed by PT and new dressing applied. 1035
--- NOTE | 2023-07-13 11:31 | PC.NURSE ---
pt menation appears to wax and wane frequently. pt is somewhat compliant with care. OT attempted to get pt up to side of bed. pt began to lean away and against assistance from OT. OT asked pt to sit up, pt then closed his eyes and refused to open them, while actively pushing backwards against staff.
[2023-07-13 11:45] LABS: Hemoglobin A1C 11.9 % (4.0-6.0)
--- NOTE | 2023-07-13 11:55 | SW/DCPLANNER ---
Addendum entered by Page Mosher 07/14/23 09:47: The plan for this patient is to discharge to [place] tomorrow SNF level of care. Addendum entered by Page Mosher 07/13/23 15:39: Esha w/ [facility] is able to accept this patient SNF level of care on Monday07/15/23. Original Note: Due to patient not being able to answer questions I did speak w/ his sister (Kari) regarding plans once medically stable for discharge. PT/OT evaluated patient and recommended SNF level of care once medically stable for discharge. Patient currently has a [employer] (Lorie [phone]) involved. After a lengthy discussion w/ Kari and Lorie the plan is for patient information to be faxed to [facility] and [facility]. I will continue to follow up w/ patient, family, Lorie and facilities. Discharge date is unknown at this time.
[2023-07-13 12:28] LABS: POC Glucose,Bedside 248 (70-110)
--- NOTE | 2023-07-13 12:32 | ECG_ITS ---
APPROVED REPORT Exam: Resting ECG HR:114 bpm ECG Measurements Heart Rate 114 AXES IA 148 P 16 QRSd 96 QRS -2 QT 314 T 83 QTc 382 Conclusion SINUS TACHYCARDIA POSSIBLE LEFT ATRIAL ENLARGEMENT [-0.1mV P-WAVE IN V1/V2] SEPTAL MYOCARDIAL INFARCTION , POSSIBLY ACUTE [40+ ms Q WAVE IN V1/V2] ACUTE ND UNCONFIRMED REPORT Electronically signed by : Loki Murray MD 07/13/2023 20:56:06
--- NOTE | 2023-07-13 13:06 | EXP.CARD.CON ---
History of Present Illness History of Present Illness Consult date: 07/13/23 Requesting physician: Brad Escalera Chief complaint: NSTEMI Additional Medical History:: History of present illness: 73-year-old white male without known CVD and with episodic homeless status presented to ER via EMS with weakness and altered mental status. Sister is bedside providing additional history. States he occasionally lives out of his truck and will end up in hospital. This occurred approximately 3 months ago in [facility]. Patient and family cannot state the nature of his admission or his diagnosis. He denies taking home medications and does not see a doctor regularly. In ER he initially had ST elevations and Q waves noted in anterior leads. His work-up also revealed DKA and dehydration. Serial troponins 0.04, 0.25, 0.57. Repeat EKG today is unchanged. White blood cell count 18,000 on admission with heart rate 1 teens?120s. 2D echo ordered and admitted for medical management. Patient states he is hurting all over but cannot give any more specific complaints or history than that. [facility] Disclaimer: The information contained in this section may have been updated after the patient was seen, as this information can be updated by other users. Medical History (Updated 07/12/23 @ 18:47 by Brad Escalera MD) Diabetes Stroke Family History (Updated 07/12/23 @ 18:15 by Payal Dickinson RN) Other CHF (congestive heart failure) COPD (chronic obstructive pulmonary disease) Cancer Coronary artery disease Dementia Hypertension Lung cancer Social History (Updated 07/12/23 @ 18:16 by Payal Dickinson RN) Smoking Status: Never smoker alcohol intake: former substance use type: denies use current occupational status: unemployed Travel in the last 8 weeks: None household members: family housing: other marital status: single number of children: 0 number of grandchildren: 0 Review of Systems Review of Systems Review of systems:: unable to obtain Exam Constitutional Constitutional: no acute distress and cooperative *Routine HEENT Exam Eye: Present PERRL *Routine Respiratory Exam Respiratory: Present CTA bilaterally; Absent accessory muscle use, wheezes or crackles *Routine Cardiovascular Exam Cardiovascular: Present RRR, Normal S1 and Normal S2; Absent murmur, gallop or rubs *Routine Abdominal Exam Abdominal: Present soft; Absent tenderness *Routine Extremities Exam Extremities: Present pulses intact; Absent cyanosis or edema *Routine Skin Exam Skin: Present intact; Absent erythema or wounds *Routine Neurological Exam Neurological: Present alert; Absent oriented X3 Comments: Disoriented to place, time, and scenario. Routine Psychiatric Exam Psychiatric: Present cooperative Meds Home Medications and Allergies Home Medications Medication Instructions Recorded Confirmed Type No Known Home Medications 07/13/23 07/13/23 History New Prescriptions to Start Prescriptions: Allergies Allergy/AdvReac Type Severity Reaction Status Date / Time No Known Allergies Allergy Verified 05/03/18 08:26 Assessment and Plan *Assessment and plan (1) Non-ST elevation [place] (NSTEMI): Status: Acute Category: Medical Code(s): I21.4 - Non-ST elevation (NSTEMI) myocardial infarction (2) DKA (diabetic ketoacidosis): Status: Acute Category: Medical Code(s): E11.10 - Type 2 diabetes mellitus with ketoacidosis without coma (3) Acute confusion: Status: Acute Category: Medical Code(s): R41.0 - Disorientation, unspecified (4) Generalized weakness: Status: Acute Category: Medical Code(s): R53.1 - Weakness Plan NSTEMI - Pt denies CP/SOA but has altered mental status. He has anterior q-waves and ST changes on EKG. Rising serial trop 0.04, 0.25, 0.57 - ECHO ordered and pending - Add DAPT, BB, Statin, ARB - Pt is
--- NOTE | 2023-07-13 13:18 | PC.NURSE ---
1230 stat ekg ordered as pt hr is maintaining in the 120's.
[2023-07-13 14:15] LABS: D-Dimer 1.55 ug/mL (0.0-0.5)
[2023-07-13 14:18] LABS: NT Pro Brain Natriuretic Pep. 5270 pg/mL (0-125)
[2023-07-13 16:29] LABS: POC Glucose,Bedside 181 (70-110)
--- NOTE | 2023-07-13 17:24 | EXP.PN ---
Subjective *Date: 07/13/23 *Time: 17:24 Exam Data for Last 24 hours Vital signs and Labs for Last 24 Hours: Temp Pulse Resp BP Pulse Ox O2 Del Method FiO2 98.2 F 100 H 19 105/67 L 93 L Room Air 40 07/13/23 15:14 07/13/23 15:14 07/13/23 15:14 07/13/23 15:14 07/13/23 15:14 07/13/23 17:00 07/13/23 07:49 Laboratory Results - last 24 hr 07/12/23 17:32: POC Glucose 266 H 07/12/23 17:50: Troponin I 0.57 H 07/12/23 18:21: POC Glucose 222 H 07/12/23 19:04: POC Glucose 231 H 07/12/23 19:28: Sodium 136, Potassium 3.2 L, Chloride 106, Carbon Dioxide 9 L* D, Anion Gap 24.2 H, BUN 13, Creatinine 0.50 L, Estimated Creat Clear 73, Estimated GFR 164, Est GFR ( Amer) 198 D, Glucose 225 H D, Random Glucose 225 H, Calcium 8.0 L 07/12/23 20:00: POC Glucose 173 H 07/12/23 20:35: POC Glucose 279 H 07/12/23 21:16: POC Glucose 167 H 07/12/23 22:05: POC Glucose 172 H 07/12/23 23:03: POC Glucose 117 H 07/12/23 23:25: Sodium 138, Potassium 3.1 L, Chloride 106, Carbon Dioxide 19 L, Anion Gap 16.1 H, BUN 12, Creatinine 0.50 L, Estimated Creat Clear 73, Estimated GFR 164, Est GFR ( Amer) 198, Glucose 103 H D, Random Glucose 103 H, Calcium 8.2 L 07/13/23 00:12: POC Glucose 75 07/13/23 01:09: POC Glucose 102 07/13/23 02:07: POC Glucose 80 07/13/23 02:30: Sodium 137, Potassium 3.5, Chloride 108 H, Carbon Dioxide 23, Anion Gap 9.5, BUN 12, Creatinine 0.50 L, Estimated Creat Clear 73, Estimated GFR 164, Est GFR ( Amer) 198, Glucose 92, Calcium 7.9 L 07/13/23 05:52: POC Glucose 214 H 07/13/23 06:35: WBC 15.5 H, RBC 4.56 L, Hgb 14.7, Hct 43.7, MCV 95.9 H, MCH 32.3 H, MCHC 33.7, RDW 14.7, Plt Count 352, MPV 9.2, Neut % (Auto) 92.2 H, Lymph % (Auto) 3.5 L, [place] % (Auto) 3.4, Eos % (Auto) 0.7, Baso % (Auto) 0.2, Neut # (Auto) 14.3 H, Lymph # (Auto) 0.6 L, [place] # (Auto) 0.5, Eos # (Auto) 0.1, Baso # (Auto) 0.0, Total Counted 100, Neutrophils % (Manual) 90 H, Band Neutrophils % 2.0, Lymphocytes % (Manual) 3 L, Monocytes % (Manual) 5, Platelet Estimate Normal, Macrocytosis 1+, Sodium 136, Potassium 3.8, Chloride 107, Carbon Dioxide 18 L, Anion Gap 14.8, BUN 13, Creatinine 0.60 L, Estimated Creat Clear 74, Estimated GFR 133, Est GFR ( Amer) 161, Glucose 250 H D, Hemoglobin A1c 11.9 H, Calcium 8.0 L 07/13/23 12:06: POC Glucose 248 H 07/13/23 13:49: D-Dimer 1.55 H, NT-Pro-B Natriuret Pep 5270 H 07/13/23 16:14: POC Glucose 181 H I & O for Last 24 hours: Intake & Output 07/10/23 07/11/23 07/12/23 07/13/23 23:59 23:59 23:59 23:59 Intake Total 955 / 955 930 / 930 Output Total 1974 250 / 250 Balance -1020 / -1050 680 / 680 Weight 76.374 kg 77.11 kg Assessment and Plan *Assessment and plan (1) Generalized weakness: Status: Acute Category: Medical Code(s): R53.1 - Weakness (2) Acute confusion: Status: Acute Category: Medical Code(s): R41.0 - Disorientation, unspecified (3) Non-ST elevation [place] (NSTEMI): Status: Acute Category: Medical Code(s): I21.4 - Non-ST elevation (NSTEMI) myocardial infarction (4) DKA (diabetic ketoacidosis): Status: Acute Category: Medical Code(s): E11.10 - Type 2 diabetes mellitus with ketoacidosis without coma Plan Patient is a 73-year-old male with past medical history of diabetes mellitus who has not been taking any of his medications presented to hospital due to generalized weakness. Patient was also noticed to have confusion. Patient is not able to provide history, he is asking for food. Otherwise he was noticed to have dry mucous membranes. Patient is currently living with his sister. Assessment DKA - resolved Anion gap metabolic acidosis - improving Dehydration Bilateral lower extremity edema, generalized weakness Elevated troponin, likely demand ischemia, type II [place] Leukocytosis likely reactive Hypertension Hyperlipidemia Plan DC IV insulin, IV fluids _ DC, statrted on sliding scale BMP ever
[2023-07-13 18:17] LABS: PTT Heparin (inpatient only) 40.6 Seconds (23.6-34.0)
[2023-07-13 20:35] LABS: POC Glucose,Bedside 206 (70-110)
[2023-07-14] VITALS (23 sets, daily range): BP systolic 83–143; BP diastolic 49–91; PULSE 79–118; RESP 16–20; TEMP 36.8–37.1; O2SAT 90–96; BMI 23.5
[2023-07-14 00:42] LABS: PTT Heparin (inpatient only) 54.7 Seconds (23.6-34.0)
--- NOTE | 2023-07-14 00:50 | PC.NURSE ---
spoke with zi at night watch regarding aptt 54.7. no new changes were made to drip. still infusing at 18mls/hr. next aptt ordered for 0615.
[2023-07-14 01:23] LABS: Vancomycin,Trough 11.3 ug/mL (5.0-10.0)
--- NOTE | 2023-07-14 01:50 | PC.NURSE ---
spoke with lab regarding the status of the patient's blood for transfusions, stated it wasn't here at the facility yet
[2023-07-14 05:39] LABS: POC Glucose,Bedside 182 (70-110)
[2023-07-14 06:17] LABS: MANUAL DIFFERENTIAL MANUAL DIFFERENTIAL (MANUAL DIFF)
[2023-07-14 06:28] LABS: Basophils % 0.1 % (0.1-2.0); Eosinophils # 0.1 K/mm3 (0.0-0.4); Eosinophils % 0.6 % (0.1-12.0); Hemoglobin 15.3 g/dL (14.1-18.0); Lymphocytes # 0.7 K/mm3 (0.7-4.5); Lymphocytes % 6.5 % (10-50); Mean Corpuscular HGB Conc 33.4 g/dL (31.8-35.4); Mean Corpuscular Hemoglobin 31.9 pg (27.0-31.2); Mean Corpuscular Volume 95.6 fl (80-94); Mean Platelet Volume 9.6 fl (7.4-10.4); Monocytes # 0.4 K/mm3 (0.1-1.0); Monocytes % 3.9 % (1.7-9.3); Neutrophils # 8.9 K/mm3 (1.8-7.8); Neutrophils % 88.9 % (37.0-80.0); Platelet Count 324 K/mm3 (142-424); Red Blood Count 4.81 M/mm3 (4.60-6.20); Red Cell Distribution Width 14.9 % (11.5-17.5)
[2023-07-14 06:35] LABS: Blood Urea Nitrogen 12 mg/dl (9-20); Calcium 7.9 mg/dl (8.4-10.2); Carbon Dioxide 19 mmol/L (22.0-30.0); Chloride 108 mmol/L (98-107); Creatinine Clearance Estimated 76 mL/min (50-200); Estimated Glomerular Filt Rate 212 ml/min (>60); GFR (African American) 257 ML/MIN (>60); Glucose 228 mg/dl (74-100); Sodium 135 mmol/L (136-145)
[2023-07-14 06:38] LABS: PTT Heparin (inpatient only) 40.4 Seconds (23.6-34.0)
[2023-07-14 06:43] LABS: Vancomycin,Peak 11.6 ug/ml (11-39)
[2023-07-14 06:47] LABS: Lymphocytes % 7 % (10-50); Macrocytosis 1+; Monocytes % 4 % (2-9); Neutrophils % 89 % (42-76); Platelet Estimate Normal; Total Cells Counted 100
--- NOTE | 2023-07-14 10:13 | HMH.PHAHEP ---
[facility] Pharmacy Heparin Dosing Demographic Data Admission date:: 07/12/23 Date: 07/14/23 Time: 10:14 Allergies Allergy/AdvReac Type Severity Reaction Status Date / Time No Known Allergies Allergy Verified 05/03/18 08:26 Height: 1.83 m Weight: 78.8 kg Indication Medication therapy:: Heparin Current Indications:: NSTEMI Current Active Problems (Updated 07/12/23 @ 18:47 by Brad Escalera MD) DKA (diabetic ketoacidosis) (Acute) Generalized weakness (Acute) Acute confusion (Acute) Non-ST elevation [place] (NSTEMI) (Acute) CVA?: No Bleeding problem?: No Kidney disease?: No AK?: Yes Desired PTT range:: 50-75 seconds Labs Anticoagulation Lab Results:: 07/14/23 06:08 Hgb 15.3 Hct 46.0 Plt Count 324 Monitoring Dose Monitor 1: Date: 07/13/23 Time: 17:35 PTT Result:: 40.6 (HAS HAD HEPARIN 5000 UNITS SUBQ SINCE 07/12/23 Infusion Rate:: HEPARIN 18 ML/HR (900 UNITS/HR) 4000 UNIT BOLUS PLT 352K Dose Monitor 2: Date: 07/14/23 Time: 00:01 PTT Result:: 54.7 Infusion Rate:: CONTINUE WITH HEPARIN 18 ML/HR (900 UNITS/HR) Dose Monitor 3: Date: 07/14/23 Time: 06:08 PTT Result:: 40.4 Infusion Rate:: INCREASE DOSE TO 21 ML/HR (1050 UNITS/HR) PLT 324K Core Measures Is INR > or = 2 at discharge?: No Most Recent Labs:: Laboratory Results - last 24 hr 07/13/23 06:35: Hemoglobin A1c 11.9 H 07/13/23 12:06: POC Glucose 248 H 07/13/23 13:49: D-Dimer 1.55 H, NT-Pro-B Natriuret Pep 5270 H 07/13/23 16:14: POC Glucose 181 H 07/13/23 17:35: APTT 40.6 H 07/13/23 20:04: POC Glucose 206 H 07/14/23 00:15: APTT 54.7 H*, Vancomycin Trough 11.3 H 07/14/23 05:32: POC Glucose 182 H 07/14/23 06:08: WBC 10.0 D, RBC 4.81, Hgb 15.3, Hct 46.0, MCV 95.6 H, MCH 31.9 H, MCHC 33.4, RDW 14.9, Plt Count 324, MPV 9.6, Neut % (Auto) 88.9 H, Lymph % (Auto) 6.5 L, [place] % (Auto) 3.9, Eos % (Auto) 0.6, Baso % (Auto) 0.1, Neut # (Auto) 8.9 H, Lymph # (Auto) 0.7, [place] # (Auto) 0.4, Eos # (Auto) 0.1, Baso # (Auto) 0.0, Total Counted 100, Neutrophils % (Manual) 89 H, Lymphocytes % (Manual) 7 L, Monocytes % (Manual) 4, Platelet Estimate Normal, Macrocytosis 1+, APTT 40.4 H, Sodium 135 L, Potassium 3.0 L D, Chloride 108 H, Carbon Dioxide 19 L, Anion Gap 11.0, BUN 12, Creatinine 0.40 L D, Estimated Creat Clear 76, Estimated GFR 212, Est GFR ( Amer) 257 D, Glucose 228 H, Calcium 7.9 L, Vancomycin Peak 11.6 If INR was < than 2.0 why was therapy stopped?: STOPPED IN NEUROSURGICAL NURSE PRACTITIONER Were Heparin and Warfarin started on the same day?: No If not, why?: HEPARIN STOPPED IN NEUROSURGICAL NURSE PRACTITIONER.
--- NOTE | 2023-07-14 10:29 | EXP.PHA.CONS ---
Pharmacy Consult Date: 07/14/23 Time: 10:29 Referring provider: DR. KITCHEN Reason for Consult:: VANCOMYCIN TROUGH Allergies Allergy/AdvReac Type Severity Reaction Status Date / Time No Known Allergies Allergy Verified 05/03/18 08:26 Home Medications Medication Instructions Recorded Confirmed Type No Known Home Medications 07/13/23 07/13/23 History New Prescriptions to Start Prescriptions: Height: 1.83 m Weight: 78.8 kg Laboratory Results:: Laboratory Results - last 24 hr 07/13/23 06:35: Hemoglobin A1c 11.9 H 07/13/23 12:06: POC Glucose 248 H 07/13/23 13:49: D-Dimer 1.55 H, NT-Pro-B Natriuret Pep 5270 H 07/13/23 16:14: POC Glucose 181 H 07/13/23 17:35: APTT 40.6 H 07/13/23 20:04: POC Glucose 206 H 07/14/23 00:15: APTT 54.7 H*, Vancomycin Trough 11.3 H 07/14/23 05:32: POC Glucose 182 H 07/14/23 06:08: WBC 10.0 D, RBC 4.81, Hgb 15.3, Hct 46.0, MCV 95.6 H, MCH 31.9 H, MCHC 33.4, RDW 14.9, Plt Count 324, MPV 9.6, Neut % (Auto) 88.9 H, Lymph % (Auto) 6.5 L, [place] % (Auto) 3.9, Eos % (Auto) 0.6, Baso % (Auto) 0.1, Neut # (Auto) 8.9 H, Lymph # (Auto) 0.7, [place] # (Auto) 0.4, Eos # (Auto) 0.1, Baso # (Auto) 0.0, Total Counted 100, Neutrophils % (Manual) 89 H, Lymphocytes % (Manual) 7 L, Monocytes % (Manual) 4, Platelet Estimate Normal, Macrocytosis 1+, APTT 40.4 H, Sodium 135 L, Potassium 3.0 L D, Chloride 108 H, Carbon Dioxide 19 L, Anion Gap 11.0, BUN 12, Creatinine 0.40 L D, Estimated Creat Clear 76, Estimated GFR 212, Est GFR ( Amer) 257 D, Glucose 228 H, Calcium 7.9 L, Vancomycin Peak 11.6 Medical History: Medical History (Updated 07/12/23 @ 18:47 by Brad Kitchen MD) Diabetes Stroke Assessment and Plan Assessment and plan all Dx Assessment and Plan for all problems:: VANCOMYCIN TROUGH LEVEL WAS 11.3 MCG/ML. CONTINUE WITH VANCOMYCIN 1500 MG Q12H AT THIS TIME.
--- NOTE | 2023-07-14 11:00 | PC.NURSE ---
courtesy tech note: patient rounded on, assisted with putting nasal cannula back on patient. no other verbalized requests at this time. call light w/in reach.
--- NOTE | 2023-07-14 11:40 | EXP.PN ---
Subjective *Date: 07/14/23 *Time: 11:40 Interval history: Patient was seen and evaluated at the bedside. denies chest pain, shortness of breath, nausea, vomiting, abdominal pain. Patient does not have any complaints at this time. Exam Data for Last 24 hours Vital signs and Labs for Last 24 Hours: Temp Pulse Resp BP Pulse Ox O2 Del Method O2 Flow Rate 98.8 F 96 H 20 112/72 96 Nasal Cannula 2 07/14/23 08:00 07/14/23 08:00 07/14/23 08:00 07/14/23 08:00 07/14/23 08:00 07/14/23 08:00 07/14/23 08:00 FiO2 40 07/13/23 07:49 Laboratory Results - last 24 hr 07/13/23 06:35: Hemoglobin A1c 11.9 H 07/13/23 12:06: POC Glucose 248 H 07/13/23 13:49: D-Dimer 1.55 H, NT-Pro-B Natriuret Pep 5270 H 07/13/23 16:14: POC Glucose 181 H 07/13/23 17:35: APTT 40.6 H 07/13/23 20:04: POC Glucose 206 H 07/14/23 00:15: APTT 54.7 H*, Vancomycin Trough 11.3 H 07/14/23 05:32: POC Glucose 182 H 07/14/23 06:08: WBC 10.0 D, RBC 4.81, Hgb 15.3, Hct 46.0, MCV 95.6 H, MCH 31.9 H, MCHC 33.4, RDW 14.9, Plt Count 324, MPV 9.6, Neut % (Auto) 88.9 H, Lymph % (Auto) 6.5 L, [place] % (Auto) 3.9, Eos % (Auto) 0.6, Baso % (Auto) 0.1, Neut # (Auto) 8.9 H, Lymph # (Auto) 0.7, [place] # (Auto) 0.4, Eos # (Auto) 0.1, Baso # (Auto) 0.0, Total Counted 100, Neutrophils % (Manual) 89 H, Lymphocytes % (Manual) 7 L, Monocytes % (Manual) 4, Platelet Estimate Normal, Macrocytosis 1+, APTT 40.4 H, Sodium 135 L, Potassium 3.0 L D, Chloride 108 H, Carbon Dioxide 19 L, Anion Gap 11.0, BUN 12, Creatinine 0.40 L D, Estimated Creat Clear 76, Estimated GFR 212, Est GFR ( Amer) 257 D, Glucose 228 H, Calcium 7.9 L, Vancomycin Peak 11.6 I & O for Last 24 hours: Intake & Output 07/11/23 07/12/23 07/13/23 07/14/23 23:59 23:59 23:59 23:59 Intake Total 955 / 955 930 / 1246 316 / 316 Output Total 1974 550 / 1350 800 / 800 Balance -1020 / -1050 380 / -104 -484 / -484 Weight 76.374 kg 77.11 kg 78.8 kg Constitutional Constitutional: no acute distress and cooperative *Routine HEENT Exam Eye: Present PERRL *Routine Respiratory Exam Respiratory: Present CTA bilaterally; Absent accessory muscle use, wheezes or crackles *Routine Cardiovascular Exam Cardiovascular: Present RRR, Normal S1 and Normal S2; Absent murmur, gallop or rubs *Routine Abdominal Exam Abdominal: Present soft; Absent tenderness *Routine Extremities Exam Extremities: Present pulses intact; Absent cyanosis or edema *Routine Skin Exam Skin: Present intact; Absent erythema or wounds *Routine Neurological Exam Neurological: Present alert; Absent oriented X3 Comments: Disoriented to place, time, and scenario. Routine Psychiatric Exam Psychiatric: Present cooperative Assessment and Plan *Assessment and plan (1) Generalized weakness: Status: Acute Category: Medical Code(s): R53.1 - Weakness (2) Acute confusion: Status: Acute Category: Medical Code(s): R41.0 - Disorientation, unspecified (3) Non-ST elevation [place] (NSTEMI): Status: Acute Category: Medical Code(s): I21.4 - Non-ST elevation (NSTEMI) myocardial infarction (4) DKA (diabetic ketoacidosis): Status: Acute Category: Medical Code(s): E11.10 - Type 2 diabetes mellitus with ketoacidosis without coma Plan Patient is a 73-year-old male with past medical history of diabetes mellitus who has not been taking any of his medications presented to hospital due to generalized weakness. Patient was also noticed to have confusion. Patient is not able to provide history, he is asking for food. Otherwise he was noticed to have dry mucous membranes. Patient is currently living with his sister. Assessment DKA - resolved Anion gap metabolic acidosis - improved Dehydration- improved Bilateral lower extremity edema, generalized weakness Elevated troponin, likely demand ischemia, type II [place] Leukocytosis likely reactive Hypertension Hyperlipidemia Plan DC IV insulin,
[2023-07-14 12:03] LABS: PTT Heparin (inpatient only) 71.2 Seconds (23.6-34.0)
--- NOTE | 2023-07-14 12:42 | EXP.CARD.PN ---
Subjective Subjective Date: 07/14/23 Time: 09:30 Principal diagnosis: NSTEMI Interval history: No events overnight. Denies CP/SOA. Has SNF placement. Pt and family agreeable to proceed with LHC +/- PCI. Exam Data for Last 24 hours Vital signs and Labs for Last 24 Hours: Temp Pulse Resp BP Pulse Ox O2 Del Method O2 Flow Rate 98.4 F 90 20 129/78 95 Nasal Cannula 2 07/14/23 12:00 07/14/23 12:00 07/14/23 12:00 07/14/23 12:00 07/14/23 12:00 07/14/23 12:00 07/14/23 12:00 FiO2 40 07/13/23 07:49 Laboratory Results - last 24 hr 07/13/23 13:49: D-Dimer 1.55 H, NT-Pro-B Natriuret Pep 5270 H 07/13/23 16:14: POC Glucose 181 H 07/13/23 17:35: APTT 40.6 H 07/13/23 20:04: POC Glucose 206 H 07/14/23 00:15: APTT 54.7 H*, Vancomycin Trough 11.3 H 07/14/23 05:32: POC Glucose 182 H 07/14/23 06:08: WBC 10.0 D, RBC 4.81, Hgb 15.3, Hct 46.0, MCV 95.6 H, MCH 31.9 H, MCHC 33.4, RDW 14.9, Plt Count 324, MPV 9.6, Neut % (Auto) 88.9 H, Lymph % (Auto) 6.5 L, [place] % (Auto) 3.9, Eos % (Auto) 0.6, Baso % (Auto) 0.1, Neut # (Auto) 8.9 H, Lymph # (Auto) 0.7, [place] # (Auto) 0.4, Eos # (Auto) 0.1, Baso # (Auto) 0.0, Total Counted 100, Neutrophils % (Manual) 89 H, Lymphocytes % (Manual) 7 L, Monocytes % (Manual) 4, Platelet Estimate Normal, Macrocytosis 1+, APTT 40.4 H, Sodium 135 L, Potassium 3.0 L D, Chloride 108 H, Carbon Dioxide 19 L, Anion Gap 11.0, BUN 12, Creatinine 0.40 L D, Estimated Creat Clear 76, Estimated GFR 212, Est GFR ( Amer) 257 D, Glucose 228 H, Calcium 7.9 L, Vancomycin Peak 11.6 07/14/23 11:22: APTT 71.2 H* I & O for Last 24 hours: Intake & Output 07/11/23 07/12/23 07/13/23 07/14/23 23:59 23:59 23:59 23:59 Intake Total 955 / 955 930 / 1246 316 / 316 Output Total 1974 550 / 1350 800 / 800 Balance -1020 / -1050 380 / -104 -484 / -484 Weight 168 lb 6 oz 169 lb 15.975 oz 173 lb 11.588 oz Constitutional Constitutional: no acute distress and cooperative *Routine HEENT Exam Eye: Present PERRL *Routine Respiratory Exam Respiratory: Present CTA bilaterally; Absent accessory muscle use, wheezes or crackles *Routine Cardiovascular Exam Cardiovascular: Present RRR, Normal S1 and Normal S2; Absent murmur, gallop or rubs *Routine Abdominal Exam Abdominal: Present soft; Absent tenderness *Routine Extremities Exam Extremities: Present pulses intact; Absent cyanosis or edema *Routine Skin Exam Skin: Present intact; Absent erythema or wounds *Routine Neurological Exam Neurological: Present alert; Absent oriented X3 Comments: Disoriented to place, time, and scenario. Routine Psychiatric Exam Psychiatric: Present cooperative Progress Note: A&P Assessment and plan (1) Non-ST elevation [place] (NSTEMI): Status: Acute (2) DKA (diabetic ketoacidosis): Status: Acute (3) Generalized weakness: Status: Acute (4) Acute confusion: Status: Acute Assessment and Plan Assessment and Plan for All Diagnoses:: NSTEMI - Pt denies CP/SOA but has altered mental status. He has anterior q-waves and ST changes on EKG. Rising serial trop 0.04, 0.25, 0.57 and EF showing EF 20% with severe anterior wall motion abormalities. - Cont with DAPT, BB, Statin, ARB - Pt historically noncompliant but is now going to SNF so they can ensure compliance with DAPT - Pt and family agreeable to proceed with LHC +/- PCI today. Ischemic Cardiomyopathy - New dx this admission with EF 20% and old anterior NC noted on LHC - cont Toprol, Entresto, Jardiance - Wait on Aldactone due to DKA and low BP here - poor candidate for LifeVest due to SNF/AMS DM-II with DKA - new dx this admission - A1C 11.9 - Add Jardiance for CV benefit, glucose management per primary service AMS - likely secondary to DKA - has occasional homeless status - unclear history on this -Family is present and assisting with transitioning care, he is going to SNF Sinus Tach -Likely secondary to DKA -Improving with beta-tosin Further plans pendin
--- NOTE | 2023-07-14 12:46 | PC.NURSE ---
Home Medications [facility] Medication Instructions Recorded Confirmed No Known Home Medications 07/13/23 07/13/23 Aspirin (Aspirin Ec 81mg Tablet) 81 mg PO DAILY [facility] Stop: 08/13/23 08:59 Last Admin: 07/14/23 08:09 Dose: 81 mg Atorvastatin Calcium (Atorvastatin 40mg Tablet) 80 mg PO HS [facility] Stop: 08/12/23 20:59 Last Admin: 07/13/23 20:12 Dose: 80 mg Clopidogrel Bisulfate (Clopidogrel 75mg Tab) 75 mg PO DAILY [facility] Stop: 08/13/23 08:59 Last Admin: 07/14/23 08:09 Dose: 75 mg Dextrose (Dextrose 50% 50ml Syringe (Crash Cart)) 50 ml IVP NEEDED PRN PRN Reason: FOR FSBS <60 Stop: 08/12/23 00:24 Empagliflozin (Empagliflozin 10mg Tablet) 10 mg PO DAILY [facility] Stop: 08/14/23 08:59 Vancomycin/PEG/NADA/Lysine/Water (Vancomycin 1.5gm/300ml (Peg) Premix) 1.5 gm in 300 mls @ 150 mls/hr IV Q12H [facility] Stop: 07/23/23 01:29 Last Admin: 07/14/23 01:05 Dose: 150 mls/hr Heparin Sodium/Dextrose (Heparin 25,000 Units In D5w 500ml Premix) 500 mls @ 21 mls/hr IV .[id number] [facility] Stop: 08/13/23 07:14 Potassium Chloride/Water (Potassium Chloride 20meq/100ml Ivpb) 100 mls @ 50 mls/hr IV Q2H [facility] Stop: 07/14/23 15:35 Insulin Glargine (Insulin Glargine 100 Units/Ml 10ml Vial) 10 unit SQ HS [facility] Stop: 08/12/23 03:44 Last Admin: 07/13/23 20:12 Dose: 10 unit Insulin Human Lispro (Humalog 100 Units/Ml 3ml Vial (Ssi)) 0 unit SQ [facility]; Protocol Stop: 08/12/23 05:59 Last Admin: 07/14/23 05:53 Dose: 2 unit Levalbuterol HCl (Levalbuterol 0.63mg/3ml Neb) 0.63 mg IH TIDP PRN PRN Reason: Shortness Of Breath Stop: 08/13/23 04:43 Last Admin: 07/14/23 05:05 Dose: 0.63 mg Metoprolol Succinate (Metoprolol Succinate Xl 25mg Tablet) 25 mg PO DAILY [facility] Stop: 08/13/23 08:59 Last Admin: 07/14/23 08:08 Dose: 25 mg Sacubitril/Valsartan (Sacubitril/Valsartan 24-26mg Tablet) 1 each PO BID [facility] Stop: 08/12/23 20:59 Last Admin: 07/14/23 08:08 Dose: 1 each Sodium Chloride (Sodium Chloride 0.9% 10ml Flush Syringe) 10 ml IV NEEDED PRN PRN Reason: Maintain IV Site Stop: 08/11/23 21:07
[2023-07-14 13:02] LABS: POC Glucose,Bedside 190 (70-110)
--- NOTE | 2023-07-14 13:04 | IR_ITS ---
APPROVED REPORT Patient Location: Inpatient PROCEDURES Selective coronary angiogram Drug-eluting stent deployment to the proximal mid and distal ramus intermedius Drug-eluting stent deployment to the mid and distal chronically occluded LAD Drug-eluting stent deployment to the ostial and proximal dominant right coronary contiguous manner INDICATION Ischemic cardiomyopathy, Chronically occluded LAD, Acute non-ST elevation myocardial infarction Informed consent was obtained prior to the procedure. COMPLICATIONS NONE Estimated Blood Loss: LESS THAN 10 ML TECHNIQUE One percent lidocaine used to anesthetize the right anterior aspect of the wrist. The right radial artery was accessed via the Seldinger technique. A 6 Polish sheath was placed in the right radial artery. 2.5 mg of Verapamil, 800 mcg of nitroglycerin, 1mg Lidocaine and 5000 U Heparin were given through the arterial sheath. The papa catheter was also used to perform selective coronary angiogram. At the end of the procedure therapeutic heparin was administered and the guide catheter was placed in the left main artery followed by Choice PT extra-support wire placed down the ramus intermedius. A 2.5 x 38 mm Buck frontier stent was deployed at 18 luz reducing the stenosis. A 2 mm balloon was then placed distal to this and predilated at 15 mmHg. An additional 2 mm x 26 mm Magnolia frontier stent was placed distal to the for stent yet still overlapping it and deployed at 20 luz. An additional 2 mm x 20 mm balloon was deployed at 20 luz for 1 minute opening the vessel after it acutely closed after the stent. There were excellent angiographic results. The balloon was brought back and deployed at 24 luz in the 2 mm stent. Excellent angiographic results were obtained with JOSE-3 flow being present down this vessel before and after the procedure. An additional Choice PT extra-support wire was used to push through the chronically occluded LAD and a 2 mm balloon was used to open the LAD. Following this a 2.5 x 38 mm Buck frontier stent was deployed in the mid LAD at 20 luz reducing the stenosis. An additional 2 mm x 26 mm Magnolia frontier stent was placed distal to the for stent yet still overlapping and deployed at 20 luz. The balloon was brought back and deployed at 20 luz to post dilate. A 2.5 x 12 mm noncompliant balloon was deployed at 20 luz throughout the mid LAD to further post dilate. JOSE 0 flow was present at the beginning of the procedure with JOSE-3 flow being present down the LAD at the end of procedure. Multiple aliquots of nitroglycerin were administered intra-coronary during the procedure. The apparatus was removed and the guide catheter was placed in the right coronary artery followed by the same wire being placed on the right coronary artery. A 5 mm x 22 mm Buck frontier stent was deployed at 20 luz reducing the stenosis. A dissection was identified proximally and JOSE II flow was present which did not respond favorably to nitroglycerin therefore an additional 5 mm x 22 mm Magnolia frontier stent was placed proximal to the for stent yet still overlapping and deployed at 20 luz. Additional nitroglycerin was administered. JOSE-3 flow was present with excellent angiograph results. At the end of procedure the apparatus was removed the sheath was removed and hemostasis was achieved using TR banding patient was transferred to the postop holding in stable condition ANGIOGRAPHIC RESULTS The left main artery Normal The left anterior descending artery Has proximal 20% stenosis and then occluded after the first septal clinical nurse occupational medicine. Following revascularization there was inline flow throughout the LAD. The LAD also gives rise to a large first diagonal artery which has a proximal 95% stenosis followed by an additional
--- NOTE | 2023-07-14 13:24 | PC.NURSE ---
tried to call sister to get consent for heart cath. no answer. left voicemail. 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
[2023-07-14 15:57] LABS: CATHL Activated Clotting Time > 400 SEC (74-125)
--- NOTE | 2023-07-14 16:12 | PC.NURSE ---
cancel heparin drip per dr benoit
[2023-07-14 17:05] LABS: POC Glucose,Bedside 168 (70-110)
--- NOTE | 2023-07-14 19:15 | PC.NURSE ---
A&O TO NAME, BIRTHDAY, AND PLACE. PT WAS ON 2L NC AT THE BEGINNING OF SHIFT AND IS CURRENTLY ON RA TOLERATING WELL THUS FAR. RESPIRATIONS REGULAR AND UNLABORED. LUNG SOUNDS DIMINISHED THROUGHOUT. NO COUGH NOTED. ACTIVE BOWEL SOUNDS HEARD IN ALL 4 QUADRANTS. SOFT AND NONTENDER ABDOMEN. NO BM THUS FAR. MAYER CATH IN PLACE WITH YELLOW URINE FLOWING FREELY. NO KINKS NOTED. BED ALARM ON THROUGHOUT SHIFT TO PROMOTE SAFETY. PT RECEIVED HEART CATH THIS SHIFT WITH 7 STENTS PLACED. RADIAL CATH SITE HAS REMAINED CDI. PT RECEIVED VANC THIS SHIFT ALONG WITH 2 RUNS OF POTASSIUM. PT TOLERATED WELL. DRESSING NOTED TO RLE. CDI. +1 PULSES NOTED THROUGHOUT. +2 PITTING EDEMA NOTED TO LLE. +3 PITTING EDEMA NOTED TO RLE. TELE ON THROUGHOUT SHIFT. SISTER DID VISIT FOR A BIT TODAY. BED IN LOWEST POSITION. CALL LIGHT WITHIN REACH. NO QUESTIONS OR CONCERNS VOICED BY PT OR FAMILY. PLAN TO DC TO [facility] TOMORROW. FAMILY AWARE. VSS.
[2023-07-14 19:52] LABS: POC Glucose,Bedside 190 (70-110)
[2023-07-15] VITALS: BP 108/70; PULSE 100; PULSE 90; RESP 18; TEMP 36.8
[2023-07-15 04:00] VITALS: BP 140/69; PULSE 103; PULSE 114; RESP 22; TEMP 36.8; O2SAT 91; BMI 23.6
[2023-07-15 04:38] VITALS: PULSE 93; PULSE 99; O2SAT 90
[2023-07-15 05:08] LABS: POC Glucose,Bedside 133 (70-110)
[2023-07-15 07:36] VITALS: PULSE 100
[2023-07-15 07:43] LABS: Basophils % 0.1 % (0.1-2.0); Eosinophils % 0.2 % (0.1-12.0); Hematocrit 46.5 % (42.0-52.0); Hemoglobin 15.4 g/dL (14.1-18.0); Lymphocytes # 0.9 K/mm3 (0.7-4.5); Mean Corpuscular Hemoglobin 31.6 pg (27.0-31.2); Mean Corpuscular Volume 95.6 fl (80-94); Mean Platelet Volume 10.4 fl (7.4-10.4); Monocytes # 0.5 K/mm3 (0.1-1.0); Monocytes % 4.2 % (1.7-9.3); Neutrophils # 11.2 K/mm3 (1.8-7.8); Neutrophils % 88.5 % (37.0-80.0); Platelet Count 373 K/mm3 (142-424); Red Blood Count 4.87 M/mm3 (4.60-6.20); Red Cell Distribution Width 14.9 % (11.5-17.5); White Blood Count 12.7 K/mm3 (4.8-10.8)
[2023-07-15 07:45] VITALS: BP 134/86; PULSE 100; RESP 19; TEMP 37.1; O2SAT 94
[2023-07-15 07:49] LABS: MANUAL DIFFERENTIAL MANUAL DIFFERENTIAL (MANUAL DIFF)
[2023-07-15 08:03] LABS: Anion Gap 13.3 mEq/L (5-15); Blood Urea Nitrogen 10 mg/dl (9-20); Calcium 7.2 mg/dl (8.4-10.2); Carbon Dioxide 22 mmol/L (22.0-30.0); Chloride 105 mmol/L (98-107); Creatinine Clearance Estimated 76 mL/min (50-200); Estimated Glomerular Filt Rate 212 ml/min (>60); GFR (African American) 257 ML/MIN (>60); Glucose 148 mg/dl (74-100); Potassium 3.3 mmoL/L (3.5-5.1); Sodium 137 mmol/L (136-145)
[2023-07-15 09:49] LABS: Lymphocytes % 8 % (10-50); Monocytes % 4 % (2-9); Neutrophils % 88 % (42-76); Platelet Estimate Normal; RBC Morphology Normal; Total Cells Counted 100
[2023-07-15 11:06] LABS: POC Glucose,Bedside 152 (70-110)
--- NOTE | 2023-07-15 11:31 | EXP.DC.SUM ---
General Admission date:: 07/12/23 Discharge date: 07/15/23 HPI HPI HPI: Patient is a 73-year-old male with past medical history of diabetes mellitus who has not been taking any of his medications presented to hospital due to generalized weakness. Patient was also noticed to have confusion. Patient is not able to provide history, he is asking for food. Patient is currently not able to provide much history due to confusion. Otherwise he was noticed to have dry mucous membranes. Patient is currently living with his sister. Hospital Course Hospital Course Hospital Course: Patient is a 73-year-old male with past medical history of diabetes mellitus who has not been taking any of his medications presented to hospital due to generalized weakness. Patient was also noticed to have confusion. Patient is not able to provide history, he is asking for food. Otherwise he was noticed to have dry mucous membranes. Patient is currently living with his sister. Assessment DKA - resolved Anion gap metabolic acidosis - improved Dehydration- improved Bilateral lower extremity edema, generalized weakness Elevated troponin, likely demand ischemia, type II DC, s/p cath per cardiology Leukocytosis likely reactive Hypertension Hyperlipidemia Stable for discharge, dc per cardiology recommendations, lantus 10 units QHS, prescriptions sent Exam Data for Last 24 hours Vital signs and Labs for Last 24 Hours: Temp Pulse Resp BP Pulse Ox O2 Del Method O2 Flow Rate 98.8 F 100 H 19 134/86 94 L Room Air 2 07/15/23 07:45 07/15/23 07:45 07/15/23 07:45 07/15/23 07:45 07/15/23 07:45 07/15/23 10:41 07/15/23 04:38 FiO2 40 07/13/23 07:49 Laboratory Results - last 24 hr 07/14/23 11:22: APTT 71.2 H* 07/14/23 12:55: POC Glucose 190 H 07/14/23 16:09: Activated Clotting Time > 400 H* 07/14/23 16:53: POC Glucose 168 H 07/14/23 19:41: POC Glucose 190 H 07/15/23 04:58: POC Glucose 133 H 07/15/23 06:33: WBC 12.7 H D, RBC 4.87, Hgb 15.4, Hct 46.5, MCV 95.6 H, MCH 31.6 H, MCHC 33.0, RDW 14.9, Plt Count 373, MPV 10.4, Neut % (Auto) 88.5 H, Lymph % (Auto) 7.0 L, [place] % (Auto) 4.2, Eos % (Auto) 0.2, Baso % (Auto) 0.1, Neut # (Auto) 11.2 H, Lymph # (Auto) 0.9, [place] # (Auto) 0.5, Eos # (Auto) 0.0, Baso # (Auto) 0.0, Total Counted 100, Neutrophils % (Manual) 88 H, Lymphocytes % (Manual) 8 L, Monocytes % (Manual) 4, Platelet Estimate Normal, RBC Morphology Normal, Sodium 137, Potassium 3.3 L, Chloride 105, Carbon Dioxide 22, Anion Gap 13.3, BUN 10, Creatinine 0.40 L, Estimated Creat Clear 76, Estimated GFR 212, Est GFR ( Amer) 257, Glucose 148 H, Calcium 7.2 L 07/15/23 10:54: POC Glucose 152 H I & O for Last 24 hours: Intake & Output 07/12/23 07/13/23 07/14/23 07/15/23 23:59 23:59 23:59 23:59 Intake Total 955 / 955 930 / 1246 316 / 516 200 / 200 Output Total 1974 550 / 1350 2000 / 2500 800 / 800 Balance -1020 / -1050 380 / -104 -1684 / -1984 -600 / -600 Weight 76.374 kg 77.11 kg 78.8 kg 79.01 kg Constitutional Constitutional: no acute distress *Routine HEENT Exam Head: Present normocephalic Eye: Present EOMI and PERRL ENT: Present mucous membranes moist *Routine Neck Exam Neck: Present supple; Absent lymphadenopathy *Routine Respiratory Exam Respiratory: Present CTA bilaterally *Routine Cardiovascular Exam Cardiovascular: Present RRR *Routine Abdominal Exam Abdominal: Present soft and normoactive bowel sounds; Absent tenderness *Routine Extremities Exam Extremities: Absent cyanosis, clubbing or edema *Routine Skin Exam Skin: Present warm; Absent rash *Routine Neurological Exam Neurological: Present alert and oriented X3 Results Data Completed and Pending Labs on day of discharge: Labs from last 24 hours 07/15/23 07/15/23 07/15/23 10:54 06:33 04:58 WBC 12.7 H D RBC 4.87 Hgb 15.4 Hct 46.5 MCV 95.6 H MCH 31.6 H MCHC 33.0 RDW 14.9 Plt Count 373 MPV 10.4 Neut % (Auto) 88.5
== END 2023-07-15 14:02 | DRG 321 ==
LOC: ER 13:12 → 2ND 13:40
PROVIDERS: Internal Medicine; Nurse Practitioner Critical Care Medicine; Physician Assistant; Admitting Provider Internal Medicine; Emergency Provider Emergency Medicine; Visit Provider Internal Medicine
PROC: 027137Z Dilation of Coronary Artery, Two Arteries with Four or More Drug-eluting Intraluminal Devices, Percutaneous Approach (ICD-10-PCS; principal; 2023-07-14 14:45)
DX: I21.4 Non-ST elevation (NSTEMI) myocardial infarction (principal); E11.10 Type 2 diabetes mellitus with ketoacidosis without coma; I25.10 Atherosclerotic heart disease of native coronary artery without angina pectoris; I10 Essential (primary) hypertension; E78.5 Hyperlipidemia, unspecified; E86.0 Dehydration; I25.82 Chronic total occlusion of coronary artery; I25.5 Ischemic cardiomyopathy
CPT/HCPCS: 36415; 51702; 70450; 71045; 80048; 80053; 80202; 81001; 82009; 82550; 82803; 82947; 82962; 83036; 83605; 83690; 83880; 84436; 84443; 84484; 85007; 85014; 85018; 85025; 85048; 85049; 85347; 85378; 85610; 85730; 87040; 87636; 92928; 92943; 93005; 93306; 93458; 93970; 94640; 97163; 97167; 97530; 99152; 99153; 99291; C1725; C1769; C1876; C9600; C9607; J1644; Q9967

== ENCOUNTER 2023-07-16 12:38 | Inpatient (IN) | payer MEDICARE, SELFPAY ==
[2023-07-16] VITALS (21 sets, daily range): BP systolic 69–132; BP diastolic 40–76; PULSE 27–103; RESP 20–25; TEMP 37.1; O2SAT 61–100; BMI 25.7; BMI 22.8
--- NOTE | 2023-07-16 12:37 | ECG_ITS ---
APPROVED REPORT Exam: Resting ECG HR:95 bpm ECG Measurements Heart Rate 95 AXES NJ 124 P 42 QRSd 102 QRS 58 QT 381 T 89 QTc 433 Conclusion SINUS RHYTHM WITH OCCASIONAL VENTRICULAR PREMATURE COMPLEXES POSSIBLE LEFT ATRIAL ENLARGEMENT [-0.1mV P-WAVE IN V1/V2] LOW QRS VOLTAGE IN EXTREMITY LEADS [QRS DEFLECTION < 0.5 mV IN LIMB LEADS] SEPTAL MYOCARDIAL INFARCTION , OF INDETERMINATE AGE [40+ ms Q WAVE IN V1/V2] MODERATE T-WAVE ABNORMALITY, CONSIDER ANTEROLATERAL ISCHEMIA [-0.1+ mV T-WAVE IN V3-V6] ABNORMAL ECG UNCONFIRMED REPORT Electronically signed by : Loki Murray MD 07/17/2023 17:30:35
--- NOTE | 2023-07-16 12:42 | CT_ITS ---
PROCEDURE INFORMATION: Exam: CTA Chest With Contrast Exam date and time: 07/16/2023 1:28 PM Age: 73 years old Clinical indication: Shortness of breath; Additional info: Hypoxemic, SOA, recent hospital stay TECHNIQUE: Imaging protocol: Computed tomographic angiography of the chest with contrast. Exam focused on the arteries. 3D rendering (Not supervised by radiologist): MIP and/or 3D reconstructed images were created by the technologist. Radiation optimization: All CT scans at this facility use at least one of these dose optimization techniques: automated exposure control; mA and/or kV adjustment per patient size (includes targeted exams where dose is matched to clinical indication); or iterative reconstruction. Contrast material: ISOVUE 370; Contrast volume: 70 ml; Contrast route: INTRAVENOUS (IV); REPORTING DATA: Count of CT and Cardiac NM exams in prior 12 months: This patient has received [address] and 0 known cardiac nuclear medicine studies in the 12 months prior to the current study. COMPARISON: CR XR CHEST PORTABLE 07/12/2023 12:29 PM FINDINGS: Pulmonary arteries: Dilated main pulmonary artery measuring up to 3.7 cm. No pulmonary emboli. Aorta: Coronary artery and aortic atherosclerosis. Lungs: Bibasilar atelectasis. Pleural spaces: Large bilateral pleural effusions. No pneumothorax. Heart: Unremarkable. No cardiomegaly. No pericardial effusion. Lymph nodes: Unremarkable. No enlarged lymph nodes. Bones/joints: Moderate, multilevel degenerative disc disease of the thoracic spine. Soft tissues: Diffuse anasarca. IMPRESSION: 1. Dilated main pulmonary artery measuring up to 3.7 cm. Findings are nonspecific, but can be seen in the setting of fluid overload versus chronic pulmonary hypertension. 2. No pulmonary embolism 3. Large bilateral pleural effusions. No pneumothorax. 4. Diffuse anasarca.
--- NOTE | 2023-07-16 12:42 | CT_ITS ---
PROCEDURE INFORMATION: Exam: CT Head Without Contrast Exam date and time: 07/16/2023 1:20 PM Age: 73 years old Clinical indication: Altered mental status/memory loss; Additional info: AMS, hypoxemia TECHNIQUE: Imaging protocol: Computed tomography of the head without contrast. Radiation optimization: All CT scans at this facility use at least one of these dose optimization techniques: automated exposure control; mA and/or kV adjustment per patient size (includes targeted exams where dose is matched to clinical indication); or iterative reconstruction. REPORTING DATA: Count of CT and Cardiac NM exams in prior 12 months: This patient has received [address] and 0 known cardiac nuclear medicine studies in the 12 months prior to the current study. COMPARISON: CT HEAD/BRAIN WO CON 07/12/2023 12:25 PM FINDINGS: Brain: Age-related involutional changes and chronic microvascular ischemic disease. Left occipital chronic infarct. No evidence for acute transcortical infarct. No mass effect or midline shift. No extra-axial collection. No acute intracranial hemorrhage. Basal cisterns are patent. Cerebral ventricles: No ventriculomegaly. Paranasal sinuses: Visualized sinuses are unremarkable. No fluid levels. Mastoid air cells: Visualized mastoid air cells are well aerated. Bones/joints: Unremarkable. No acute fracture. Soft tissues: Unremarkable. IMPRESSION: No evidence for acute transcortical infarct, acute intracranial hemorrhage, or mass effect.
--- NOTE | 2023-07-16 12:43 | XR_ITS ---
PROCEDURE INFORMATION: Exam: XR Chest Exam date and time: 07/16/2023 1:36 PM Age: 73 years old Clinical indication: Other: Hypoxemia; Additional info: AMS, hypoxemia TECHNIQUE: Imaging protocol: Radiologic exam of the chest. Views: 1 view. COMPARISON: CT ANGIO CHEST PE PROTOCOL 07/16/2023 1:28 PM FINDINGS: Lungs: Bibasilar atelectasis. Pleural spaces: Persistent, large bilateral pleural effusions. No pneumothorax. Heart/Mediastinum: Cardiomegaly. Bones/joints: Unremarkable. IMPRESSION: Persistent, large bilateral pleural effusions. No pneumothorax. Cardiomegaly.
--- NOTE | 2023-07-16 12:45 | HMH.EDGENADL ---
Discharge Plan Disposition Patient Disposition: Admitted Chief Complaint: Altered Mental Status Prescriptions Prescriptions: No Action atorvastatin 40 mg Tablet 80 mg PO HS Qty: 30 0RF clopidogrel 75 mg Tablet 75 mg PO DAILY Qty: 30 0RF aspirin 81 mg Tablet,Delayed Release (Dr/Ec) 81 mg PO DAILY Qty: 30 0RF irbesartan 75 mg Tablet 75 mg PO DAILY Qty: 30 0RF metoprolol succinate 25 mg Tablet Extended Release 24 Hr 25 mg PO DAILY Qty: 30 0RF Jardiance 10 mg Tablet 10 mg PO DAILY Qty: 30 0RF Entresto 24-26 mg Tablet 1 tab PO BID Qty: 30 0RF Referrals Follow up/Referrals: Provider,Referral, MD [Primary Care Provider] - See instructions Clinical Impressions Clinical Impression: Non-ST elevation VA (NSTEMI), CHF exacerbation, Pulmonary edema, Pleural effusion, Acute hypoxemic respiratory failure Instructions Patient Instructions: DI for Altered Mental Status Discharge ED Provider: Rakesh Kidd General Adult HPI General Chief complaint: Altered Mental Status Stated complaint: ams Time Seen by Provider: 07/16/23 12:39 History of Present Illness HPI narrative: 73-year-old male history of hypertension, hyperlipidemia, diabetes, CAD status post 6 stents in 06/2023 recently discharged from the hospital presenting with altered mental status and hypoxemia. Patient was found at his [place] [facility] by staff altered, working hard to breathe, hypoxemic in the 70s. 2 L nasal cannula was applied. EMS got there, applied 4 L nasal cannula with adequate saturations up in the 90s. Transported to [facility] for further evaluation. Glucose 116 on arrival. Related Data Previous Rx's Medication Instructions Recorded aspirin 81 mg tablet,delayed 81 mg PO DAILY #30 tabs 07/15/23 release atorvastatin 40 mg tablet 80 mg PO HS #30 tabs 07/15/23 clopidogrel 75 mg tablet 75 mg PO DAILY #30 tabs 07/15/23 empagliflozin 10 mg tablet 10 mg PO DAILY #30 tabs 07/15/23 (Jardiance) irbesartan 75 mg tablet 75 mg PO DAILY #30 tabs 07/15/23 metoprolol succinate 25 mg 25 mg PO DAILY #30 tabs 07/15/23 tablet,extended release 24 hr sacubitril 24 mg-valsartan 26 mg 1 tab PO BID #30 tabs 07/15/23 tablet (Entresto) Allergies Allergy/AdvReac Type Severity Reaction Status Date / Time No Known Allergies Allergy Verified 05/03/18 08:26 [facility] Disclaimer: The information contained in this section may have been updated after the patient was seen, as this information can be updated by other users. Medical History (Updated 07/16/23 @ 14:34 by Rakesh Kidd MD) Diabetes Stroke Family History (Updated 07/12/23 @ 18:15 by Payal Dickinson, RN) Other CHF (congestive heart failure) COPD (chronic obstructive pulmonary disease) Cancer Coronary artery disease Dementia Hypertension Lung cancer Social History (Updated 07/12/23 @ 18:16 by Payal Dickinson, TIA) Smoking Status: Former smoker alcohol intake: former substance use type: denies use current occupational status: unemployed Travel in the last 8 weeks: None household members: family housing: other marital status: single number of children: 0 number of grandchildren: 0 ROS Obtained: Yes unobtainable due to mental status Physical Exam General General appearance: alert, in no apparent distress, lethargic and other (Acutely and chronically ill-appearing. Appears to be in respiratory distress.) ENT ENT exam: Present normal exam and mucous membranes dry Neck Neck exam: Absent meningismus Chest Chest inspection: Present normal inspection and symmetric chest wall rise Respiratory Respiratory exam: Present respiratory distress, wheezes, accessory muscle use and prolonged expiratory phase; Absent stridor Cardiovascular Cardiovascular exam: Present regular rate and normal rhythm Abdominal Exam Abdominal exam: Present soft; Absent distention, tenderness, guarding, rebound or rigidity Extremities Exa
[2023-07-16 12:53] LABS: POC Glucose,Bedside 150 (70-110)
[2023-07-16 12:56] LABS: Adenovirus,PCR Not Detected (NotDetected); Coronavirus 19, PCR Not Detected (NotDetected); Coronavirus 229E Not Detected (NotDetected); Coronavirus NL63 Not Detected (NotDetected); Coronavirus OC43 Not Detected (NotDetected); Coronovirus HKU1,PCR Not Detected (NotDetected); Human Metapneumovirus Not Detected (NotDetected); Influenza A, PCR Not Detected (NotDetected); Influenza AH1, 2009 Not Detected (NotDetected); Influenza AH1, PCR Not Detected (NotDetected); Influenza AH3,PCR Not Detected (NotDetected); Influenza B, PCR Not Detected (NotDetected); Parainfluenza 1, PCR Not Detected (NotDetected); Parainfluenza 2, PCR Not Detected (NotDetected); Parainfluenza 3, PCR Not Detected (NotDetected); Parainfluenza 4, PCR Not Detected (NotDetected); Respiratory Syncytial Virus Not Detected (NotDetected); Rhinovirus/Enterovirus Not Detected (NotDetected)
[2023-07-16 12:57] LABS: Basophils % 0.2 % (0.1-2.0); Eosinophils % 0.3 % (0.1-12.0); Hematocrit 53.2 % (42.0-52.0); Hemoglobin 16.8 g/dL (14.1-18.0); Lymphocytes % 6.3 % (10-50); Mean Corpuscular HGB Conc 31.7 g/dL (31.8-35.4); Mean Corpuscular Hemoglobin 30.7 pg (27.0-31.2); Mean Platelet Volume 9.7 fl (7.4-10.4); Monocytes # 0.6 K/mm3 (0.1-1.0); Neutrophils # 13.3 K/mm3 (1.8-7.8); Neutrophils % 89.2 % (37.0-80.0); Platelet Count 407 K/mm3 (142-424); Red Blood Count 5.48 M/mm3 (4.60-6.20); Red Cell Distribution Width 14.9 % (11.5-17.5); White Blood Count 14.9 K/mm3 (4.8-10.8)
[2023-07-16 12:57] LABS: VBG HCO3 14.1 mmol/L (23-30); VBG Oxygen Saturation 94.3 % (50-70); VBG PH 7.26 mmol/L (7.31-7.41); VBG PO2 77.3 mmol/L (28-40); VBG Total CO2 15.1 mmol/L (23-27)
[2023-07-16 13:01] LABS: Lipase 42 U/L (23-300); MANUAL DIFFERENTIAL MANUAL DIFFERENTIAL (MANUAL DIFF)
[2023-07-16 13:02] LABS: Acetone, Serum (Rapid) Moderate (None Detect); Ethyl Alcohol < 10 mg/dl (0-10); Lactic Acid 2.1 mmol/L (0.7-2.1)
--- NOTE | 2023-07-16 13:04 | EXP.PHA.CONS ---
Pharmacy Consult Date: 07/16/23 Time: 13:04 Referring provider: DR. NAZARIO Reason for Consult:: VANCOMYCIN DOSING Allergies Allergy/AdvReac Type Severity Reaction Status Date / Time No Known Allergies Allergy Verified 05/03/18 08:26 Home Medications Medication Instructions Recorded Confirmed Type aspirin 81 mg tablet,delayed 81 mg PO DAILY #30 tabs 07/15/23 Rx release atorvastatin 40 mg tablet 80 mg PO HS #30 tabs 07/15/23 Rx clopidogrel 75 mg tablet 75 mg PO DAILY #30 tabs 07/15/23 Rx empagliflozin 10 mg tablet 10 mg PO DAILY #30 tabs 07/15/23 Rx (Jardiance) irbesartan 75 mg tablet 75 mg PO DAILY #30 tabs 07/15/23 Rx metoprolol succinate 25 mg 25 mg PO DAILY #30 tabs 07/15/23 Rx tablet,extended release 24 hr sacubitril 24 mg-valsartan 26 mg 1 tab PO BID #30 tabs 07/15/23 Rx tablet (Entresto) New Prescriptions to Start Prescriptions: Height: 1.83 m Weight: 79 kg Laboratory Results:: Laboratory Results - last 24 hr 07/16/23 12:39: WBC 14.9 H, RBC 5.48, Hgb 16.8, Hct 53.2 H, MCV 97.0 H, MCH 30.7, MCHC 31.7 L, RDW 14.9, Plt Count 407, MPV 9.7, Neut % (Auto) 89.2 H, Lymph % (Auto) 6.3 L, [place] % (Auto) 4.0, Eos % (Auto) 0.3, Baso % (Auto) 0.2, Neut # (Auto) 13.3 H, Lymph # (Auto) 1.0, [place] # (Auto) 0.6, Eos # (Auto) 0.0, Baso # (Auto) 0.0, Lactate 2.1, Lipase 42, Plasma/Serum Alcohol < 10, Acetone Level Moderate 07/16/23 12:44: POC Glucose 150 H 07/16/23 12:46: VBG pH 7.26 L, VBG pCO2 32.0 L, VBG pO2 77.3 H, VBG HCO3 14.1 L, VBG Total CO2 15.1 L, VBG O2 Saturation 94.3 H, VBG Base Excess -13.0 L Medical History: Medical History (Updated 07/12/23 @ 18:47 by Brad Escalera MD) Diabetes Stroke Assessment and Plan Assessment and plan all Dx Assessment and Plan for all problems:: Pharmacokinetic dosing service Patient: Floor: Age: 73 yo Serum creatinine: 1 mg/dL Height: 72.0 Inches Weight (kg): 79 Assessment: IBW (kg): 77.60 Dosing wt(kg): 79 Estimated Creatinine clearance (ml/min): 74.4 CRCL method: Cockcroft and Gault using ibw(default). Drug selected: Vancomycin Loading dose (mg): 0 Vd (liters): 63.2 (factor used: 0.8 L/kg) Isidro (hr-1): 0.066 Half life (hrs): 10.50 Recommended dose: 1250 mg Interval: 12 hrs Infusion time (hrs): 2.0 Predicted peak (mcg/mL): 33.9 Predicted trough (mcg/mL): 17.52 Total body weight is being used for vancomycin dosing. Recommendations: Give Vancomycin 1250 mg q 12 hrs with an expected Cpeak of 33.9 mcg/ml and an expected Ctrough of 17.52 mcg/ml ----Vanco only - ignore for aminoglycosides----- CLvanco= 4.17 L/hr AUC 0-24 /GENE Data: GENE 0.5 mcg/mL: AUC/GENE: 1199.0 GENE 1.0 mcg/mL: AUC/GENE: 599.5 --------- GENE 1.5 mcg/mL: AUC/GENE: 399.7 GENE 2.0 mcg/mL: AUC/GENE: 299.8 R
[2023-07-16 13:05] LABS: Chloride 107 mmol/L (98-107); Sodium 141 mmol/L (136-145)
[2023-07-16 13:06] LABS: Potassium 3.9 mmoL/L (3.5-5.1)
[2023-07-16 13:08] LABS: Alanine Aminotransferase 19 U/L (12-78); Albumin Level 2.9 g/dl (3.5-5.0); Albumin/Globulin Ratio 0.8 (1.1-1.8); Alkaline Phosphatase 74 U/L (38-126); Anion Gap 21.9 mEq/L (5-15); Aspartate Amino Transferase 83 U/L (17-59); Bilirubin,Total 0.8 mg/dl (0.2-1.3); Blood Urea Nitrogen 17 mg/dl (9-20); Calcium 7.9 mg/dl (8.4-10.2); Carbon Dioxide 16 mmol/L (22.0-30.0); Creatine Kinase 256 U/L (55-170); Creatinine Clearance Estimated 76 mL/min (50-200); Estimated Glomerular Filt Rate 111 ml/min (>60); GFR (African American) 135 ML/MIN (>60); Globulin 3.6 g/dL (1.3-3.2); Glucose 158 mg/dl (74-100); Total Protein,Serum 6.5 g/dl (6.3-8.2)
--- NOTE | 2023-07-16 13:18 | PC.NURSE ---
pt to CT
[2023-07-16 13:19] LABS: Lymphocytes % 5 % (10-50); Monocytes % 1 % (2-9); Neutrophils % 94 % (42-76); Platelet Estimate Slight Increase; RBC Morphology Normal; Total Cells Counted 100
[2023-07-16 13:26] LABS: T4 (Thyroxine) 3.2 ug/dl (5.53-11.0)
[2023-07-16 13:39] LABS: Thyroid Stimulating Hormone 0.74 uIU/mL (0.465-4.68)
--- NOTE | 2023-07-16 13:50 | ECG_ITS ---
APPROVED REPORT Exam: Resting ECG HR:97 bpm ECG Measurements Heart Rate [address] 120 P 44 QRSd 122 QRS 61 QT 385 T 268 QTc 439 Conclusion SINUS RHYTHM WITH OCCASIONAL VENTRICULAR PREMATURE COMPLEXES POSSIBLE LEFT ATRIAL ENLARGEMENT [-0.1mV P-WAVE IN V1/V2] SEPTAL MYOCARDIAL INFARCTION , OF INDETERMINATE AGE [40+ ms Q WAVE IN V1/V2] MODERATE T-WAVE ABNORMALITY, CONSIDER LATERAL ISCHEMIA [-0.1+ mV T-WAVE IN I/aVL/V5/V6] MODERATE T-WAVE ABNORMALITY, CONSIDER INFERIOR ISCHEMIA [-0.1+ mV T-WAVE IN II/aVF] ABNORMAL ECG UNCONFIRMED REPORT Electronically signed by : Loki Murray MD 07/17/2023 17:28:25
--- NOTE | 2023-07-16 14:05 | PC.NURSE ---
DR NAZARIO S/W DR CHARLES
[2023-07-16 14:10] LABS: NT Pro Brain Natriuretic Pep. 9900 pg/mL (0-125)
--- NOTE | 2023-07-16 14:10 | PC.NURSE ---
DR NAZARIO S/W DR KITCHEN, HOWEVER HOSPITALIST STATES I WILL CALL YOU BACK .
--- NOTE | 2023-07-16 14:26 | PC.NURSE ---
Dr. Kidd speaking with hospitalist
--- NOTE | 2023-07-16 14:29 | HMH.PHAHEP ---
[facility] Pharmacy Heparin Dosing Demographic Data Admission date:: 07/16/23 Date: 07/16/23 Time: 14:29 Allergies Allergy/AdvReac Type Severity Reaction Status Date / Time No Known Allergies Allergy Verified 07/16/23 16:30 Height: 1.83 m Weight: 79 kg Indication Medication therapy:: Heparin Current Active Problems (Updated 07/16/23 @ 16:36 by Huma Alba RN) Non-ST elevation MT (NSTEMI) (Acute) CHF exacerbation (Acute) Pulmonary edema (Acute) Pleural effusion (Acute) Acute hypoxemic respiratory failure (Acute) CVA?: No Bleeding problem?: No Kidney disease?: No MT?: Yes Desired PTT range:: 50-75 seconds Labs Anticoagulation Lab Results:: 07/16/23 12:39 Hgb 16.8 Hct 53.2 H Plt Count 407 Monitoring Dose Monitor 1: Date: 07/16/23 Time: 14:29 PTT Result:: 30.0 Infusion Rate:: BOLUS OF 4000 UNITS FOR ACUTE NSTEMI, HEPARIN 950 UNITS/HR DRIP. Core Measures Is INR > or = 2 at discharge?: No Most Recent Labs:: Laboratory Results - last 24 hr 07/16/23 12:39: WBC 14.9 H, RBC 5.48, Hgb 16.8, Hct 53.2 H, MCV 97.0 H, MCH 30.7, MCHC 31.7 L, RDW 14.9, Plt Count 407, MPV 9.7, Neut % (Auto) 89.2 H, Lymph % (Auto) 6.3 L, [place] % (Auto) 4.0, Eos % (Auto) 0.3, Baso % (Auto) 0.2, Neut # (Auto) 13.3 H, Lymph # (Auto) 1.0, [place] # (Auto) 0.6, Eos # (Auto) 0.0, Baso # (Auto) 0.0, Total Counted 100, Neutrophils % (Manual) 94 H, Lymphocytes % (Manual) 5 L, Monocytes % (Manual) 1 L, Platelet Estimate Slight increase, RBC Morphology Normal, APTT 30.0, Sodium 141, Potassium 3.9, Chloride 107, Carbon Dioxide 16 L, Anion Gap 21.9 H, BUN 17 D, Creatinine 0.70 D, Estimated Creat Clear 76, Estimated GFR 111, Est GFR ( Amer) 135 D, Glucose 158 H, Lactate 2.1, Calcium 7.9 L, Total Bilirubin 0.8, AST 83 H, ALT 19, Alkaline Phosphatase 74, Total Creatine Kinase 256 H, Troponin I 11.20 H, NT-Pro-B Natriuret Pep 9900 H, Total Protein 6.5, Albumin 2.9 L, Globulin 3.6 H, Albumin/Globulin Ratio 0.8 L, Lipase 42, TSH 0.74, Thyroxine (T4) 3.2 L, Plasma/Serum Alcohol < 10, Acetone Level Moderate 07/16/23 12:44: POC Glucose 150 H 07/16/23 12:46: VBG pH 7.26 L, VBG pCO2 32.0 L, VBG pO2 77.3 H, VBG HCO3 14.1 L, VBG Total CO2 15.1 L, VBG O2 Saturation 94.3 H, VBG Base Excess -13.0 L 07/16/23 12:53: SARS-CoV-2 (PCR) Not detected, Influenza A Untype (PCR) Not detected, Influenza Type B (PCR) Not detected If INR was < than 2.0 why was therapy stopped?: NO WARFARIN STARTED Were Heparin and Warfarin started on the same day?: No If not, why?: WARFARIN NOT INDICATED
[2023-07-16 14:35] LABS: Microscopic, Urine URINE MICROSCOPIC (MICROSCOPIC)
--- NOTE | 2023-07-16 14:35 | PC.NURSE ---
RT at placing on bipap
[2023-07-16 14:37] LABS: Appearance,Urine CLEAR (Clear); Bilirubin,Urine Negative (Negative); Blood, Urine 2+ (Negative); Color,Urine YELLOW (Yellow); Glucose,Urine (UA) 3+ (Negative); Ketones,Urine 2+ (Negative); Leukocyte Esterase,Urine Negative (Negative); Nitrate,Urine Negative (Negative); Protein,Urine Negative (Negative); Urobilinogen,Urine 0.2 EU/dl (0.2)
[2023-07-16 15:17] LABS: Bacteria,Urine Trace /lpf
[2023-07-16 15:18] LABS: Yeast,Urine 3+ /lpf
--- NOTE | 2023-07-16 15:23 | PC.NURSE ---
Dr. Kidd at BS to update pt/family on current POC
--- NOTE | 2023-07-16 15:29 | PC.NURSE ---
CALLED REPORT KARLEY WEBER. RESPIRATORY NOTIFIED PT WILL BE TRANSFERRED TO 2ND FLOOR
--- NOTE | 2023-07-16 16:19 | PC.NURSE ---
upon arrival to 217 noted pt's EMV 1-4-1=6, pt has bilateral PIV's and loredo in place upon arrival; pt on bipap 80%FRIO2 and oxygen saturations 100; notified MD Ecsalera of emv and hypotension, MD Escalera coming to bedside; notifed MD that pt had asa and plavix ordered po but unable to give po due to decreased loc, MD Escalera stated pt on heparin drip at 950units/hr so okay to hold at this time, MD Escalera speaking with pt's family at this time, call light within reach
[2023-07-16 16:50] LABS: Reflex Lactic Add Lactic Reflex
[2023-07-16 16:58] LABS: ABG Base Excess -16.6 mmol/L (-2.4-2.3); ABG HCO3 10.7 mmhg (22.0-26.0); ABG Oxygen Saturation 100 % (90-100); ABG PCO2 25.4 mmhg (35.0-45.0); ABG PH 7.24 mmol/L (7.35-7.45); ABG PO2 225.1 mmhg (80-100); ABG TCO2 11.5 mmhg (23-27)
[2023-07-16 17:00] LABS: Allen's Test Non Applicable; Oxygen 80 %
[2023-07-16 17:01] LABS: Source Left Radial
--- NOTE | 2023-07-16 17:03 | PC.NURSE ---
notified MD Escalera of pt's hypotension and that more family at bedside, MD coming to speak with family
--- NOTE | 2023-07-16 17:13 | PC.WOUNDNOTE ---
wound present on arrival, lateral right lower extremity
--- NOTE | 2023-07-16 17:26 | PC.NURSE ---
MD Escalera spoke with family, family does not want pressors started at this time even with hypotension, family okay with bipap and meds already in place, family wants pt to be comfortable
--- NOTE | 2023-07-16 17:32 | EXP.HP ---
History of Present Illness *Admission Date: 07/16/23 [facility] Disclaimer: The information contained in this section may have been updated after the patient was seen, as this information can be updated by other users. Medical History (Updated 07/16/23 @ 16:36 by Huma Alba RN) Diabetes History of left heart catheterization (LHC) Pacemaker Stroke Family History Other CHF (congestive heart failure) COPD (chronic obstructive pulmonary disease) Cancer Coronary artery disease Dementia Hypertension Lung cancer Social History (Updated 07/16/23 @ 16:37 by Huma Alba, RN) Smoking Status: Former smoker alcohol intake: former substance use type: denies use current occupational status: unemployed Travel in the last 8 weeks: None household members: family housing: other marital status: single number of children: 0 number of grandchildren: 0 Review of Systems Review of Systems Review of systems:: unable to obtain Meds Home Medications and Allergies Home Medications Medication Instructions Recorded Confirmed Type aspirin 81 mg tablet,delayed 81 mg PO DAILY #30 tabs 07/15/23 07/16/23 Rx release atorvastatin 40 mg tablet 80 mg PO HS #30 tabs 07/15/23 07/16/23 Rx clopidogrel 75 mg tablet 75 mg PO DAILY #30 tabs 07/15/23 07/16/23 Rx empagliflozin 10 mg tablet 10 mg PO DAILY #30 tabs 07/15/23 07/16/23 Rx (Jardiance) irbesartan 75 mg tablet 75 mg PO DAILY #30 tabs 07/15/23 07/16/23 Rx metoprolol succinate 25 mg 25 mg PO DAILY #30 tabs 07/15/23 07/16/23 Rx tablet,extended release 24 hr sacubitril 24 mg-valsartan 26 mg 1 tab PO BID #30 tabs 07/15/23 07/16/23 Rx tablet (Entresto) New Prescriptions to Start Prescriptions: Allergies Allergy/AdvReac Type Severity Reaction Status Date / Time No Known Allergies Allergy Verified 07/16/23 16:30 Exam Data for Last 24 hours Vital signs and Labs for Last 24 Hours: Temp Pulse Resp BP Pulse Ox O2 Del Method O2 Flow Rate 98.8 F 96 H 20 103/59 L 99 BiPAP 4 07/16/23 15:49 07/16/23 15:49 07/16/23 15:49 07/16/23 15:49 07/16/23 15:00 07/16/23 17:00 07/16/23 12:38 FiO2 80 07/16/23 14:30 Laboratory Results - last 24 hr 07/16/23 12:39: WBC 14.9 H, RBC 5.48, Hgb 16.8, Hct 53.2 H, MCV 97.0 H, MCH 30.7, MCHC 31.7 L, RDW 14.9, Plt Count 407, MPV 9.7, Neut % (Auto) 89.2 H, Lymph % (Auto) 6.3 L, Sargent % (Auto) 4.0, Eos % (Auto) 0.3, Baso % (Auto) 0.2, Neut # (Auto) 13.3 H, Lymph # (Auto) 1.0, Sargent # (Auto) 0.6, Eos # (Auto) 0.0, Baso # (Auto) 0.0, Total Counted 100, Neutrophils % (Manual) 94 H, Lymphocytes % (Manual) 5 L, Monocytes % (Manual) 1 L, Platelet Estimate Slight increase, RBC Morphology Normal, APTT 30.0, Sodium 141, Potassium 3.9, Chloride 107, Carbon Dioxide 16 L, Anion Gap 21.9 H, BUN 17 D, Creatinine 0.70 D, Estimated Creat Clear 76, Estimated GFR 111, Est GFR ( Amer) 135 D, Glucose 158 H, Lactate 2.1, Calcium 7.9 L, Total Bilirubin 0.8, AST 83 H, ALT 19, Alkaline Phosphatase 74, Total Creatine Kinase 256 H, Troponin I 11.20 H, NT-Pro-B Natriuret Pep 9900 H, Total Protein 6.5, Albumin 2.9 L, Globulin 3.6 H, Albumin/Globulin Ratio 0.8 L, Lipase 42, TSH 0.74, Thyroxine (T4) 3.2 L, Plasma/Serum Alcohol < 10, Acetone Level Moderate 07/16/23 12:44: POC Glucose 150 H 07/16/23 12:46: VBG pH 7.26 L, VBG pCO2 32.0 L, VBG pO2 77.3 H, VBG HCO3 14.1 L, VBG Total CO2 15.1 L, VBG O2 Saturation 94.3 H, VBG Base Excess -13.0 L 07/16/23 12:53: Chlamy pneumoniae PCR TNP, Adenovirus (PCR) Not detected, B. pertussis DNA (PCR) TNP, Coronavirus OC43 (PCR) Not detected, Coronavirus HKU1 (PCR) Not detected, Coronavirus 229E (PCR) Not detected, SARS-CoV-2 (PCR) Not detected 07/16/23 12:53: SARS-CoV-2 (PCR) Not detected, Coronavirus NL63 (PCR) Not detected, Human Metapneumovir PCR Not detected, Influenza A (H1) PCR Not detected, Influ A (H1N1/09) PCR Not detected, Inf
--- NOTE | 2023-07-16 20:50 | PC.NURSE ---
Indigo WEBER was told in report from Shelly WEBER family requested no excessive sticks. Patient is on a heparin gtt started at 1435, last PTT was at 1230. PTT ordered on was cancelled by lab per house (see order history). 2014 - Indigo WEBER contacted Phil Hilliard, hospitalist r/t heparin gtt and no follow up PTT. Babak ordered stat PTT. Indigo WEBER attempted twice, unsuccessful. 2044 - Indigo WEBER contacted Nguyễn Kaplan r/t the situation - House suggested contacting Lab for an attempt -- awaiting lab. Estrella Charge Nurse is aware of the situation.
--- NOTE | 2023-07-16 23:23 | PC.NURSE ---
RT notified r/t O2 77%
--- NOTE | 2023-07-16 23:51 | EXP.DEATH.DS ---
Discharge Sum: Prov Provider Primary care physician: Referral ProviderMD Visit Care Team Role Provider Type Referral Provider, Primary Care Provider Referring Kofi Baxter MD Other Providers Staff Physician Usha Chester MD Other Providers Staff Physician Yani Newell MD Other Providers Consulting Physician Jose Salas MD Other Providers Staff Physician LAUREN Carrasco Other Providers Physician Clinical Supervisor Hari Michele MD Other Providers Consulting Physician Luis Xiao MD Other Providers Consulting Physician LAUREN Virk Other Providers Physician Clinical Supervisor Toño Serna MD Other Providers Staff Physician Adrienne Haney APRN Other Providers Nurse Practitioner Lani Guillen APRN Other Providers Nurse Practitioner Rakesh Kidd MD Emergency Provider ER Physician Brad Escalera MD Admit Provider Staff Physician Attending Provider Consults: 07/16/23 14:39 Cardiology Consult [Consult to Cardiology] [CONS] Routine Consulting Provider: Cardiology Reason For Consult: sob 07/16/23 18:34 Nutrition Consult [CONS] Routine Comment: Reason For Exam: 07/16/23 19:46 Pulmonology Consult [Consult to Pulmonology] [CONS] Routine Consulting Provider: Usha Chester Reason For Consult: pulmonary edema Discharge Sum: Diag PCOD Cause of : Acute respiratory failure with hypoxemia Contributing Factors (1) Acute hypoxemic respiratory failure: (2) CHF exacerbation: (3) Pulmonary edema: (4) Pleural effusion: Discharge Sum: Summary Date and Time Date of admission: 07/16/23 15:50 Date of : 07/16/23 Time of : 23:44 Hospital Course prior to Hospital Course Information: Patient is a 73-year-old male with past medical history of ischemic cardiomyopathy, diabetes mellitus who presented to hospital from shelter for hypoxia and change in mental status. Patient was recently discharged from the hospital for new onset ischemic cardiomyopathy, diabetes mellitus. Patient presented to hospital today for bilateral pleural effusions hypoxia. Troponin 11.40, cardiology has been consulted, IV heparin BiPAP support Start prophylactic vancomycin, Zosyn Pulmonary has been consulted ABG reviewed, pH 7.24, acidotic Discussed CODE STATUS with family-family decides not for aggressive measures including vasopressor support, ventilator support, or chest compressions. Patient's CODE STATUS is DNR/DNI, family is considering comfort care measures Patient recently had a stents placement, continue aspirin, Plavix on IV heparin Summary Details: called by bedside nurse. patient found on PEA, removed BIPAP. provided oxygen for comfort. TOD: 2344. Additional Data Confirmation of as documented by pronouncing clinician: no pulse, no respirations, no heart sounds and pupils fixed and dilated Family: contacted Attending/PCP notified?: No Attending physician: Brad Escalera MD Was code activated?: No securities compliance examiner notified?: Yes Advance directives: Yes Hospice patient?: No
--- NOTE | 2023-07-17 00:12 | PC.NURSE ---
Notified family Saleem regarding pt change and advised family to come in.
--- NOTE | 2023-07-17 00:33 | PC.NURSE ---
2328 patient bradycardic 50's-20's, BP unable to obtain, O2 <70's, Will RT, Carol Charge, Meredith RN, and Indigo RN at bedside 2330 attempted to contact next of kin, Kari x3 and Saleem x2 [phone] Hospitalist notified, patient placed on 2LNC 2335 Kari called back - informed their has been a change in patient condition 2344 Patient pronounced by Phil Hilliard, Hospitalist 2346 Konstantin Denney at [facility] notified - patient ruled out 2356 notified dinora Lan - patient was ruled out 0005 Kari arrived 11 [place] notified of expiration
[2023-07-17 03:31] LABS: POC Glucose,Bedside 144 (70-110)
== END 2023-07-17 02:50 | disposition expired ==
LOC: ER 14:34 → 2ND 19:18
PROVIDERS: Nurse Practitioner Family; Admitting Provider Internal Medicine; Emergency Provider Emergency Medicine; Visit Provider Internal Medicine
DX: I21.4 Non-ST elevation (NSTEMI) myocardial infarction (principal); I50.23 Acute on chronic systolic (congestive) heart failure; J96.21 Acute and chronic respiratory failure with hypoxia; J81.1 Chronic pulmonary edema; E11.9 Type 2 diabetes mellitus without complications; I25.10 Atherosclerotic heart disease of native coronary artery without angina pectoris; Z95.5 Presence of coronary angioplasty implant and graft; I25.5 Ischemic cardiomyopathy; Z66 Do not resuscitate
CPT/HCPCS: 36415; 70450; 71045; 71275; 80053; 81001; 82009; 82550; 82803; 82962; 83605; 83690; 83880; 84436; 84443; 84484; 85007; 85025; 85730; 87040; 87632; 87635; 87636; 93005; 94660; 99291; G0378; J2543; Q9967